=== PATIENT | female | born 1935 | race Caucasian/White ===

== ENCOUNTER 2017-04-24 17:08 | Inpatient (IN) | payer MEDICARE ==
[~2017-04-24] VITALS: Ht 167.6 cm; Wt 82.8 kg
[2017-04-24 17:55] LABS: BASO # 0.1 x10^3/uL (0.0-0.2); BASO % 1 % (0-3); EOS # 0.3 x10^3/uL (0.0-0.7); EOS % 5 % (0-3); HEMATOCRIT 43.7 % (36.0-47.0); HEMOGLOBIN 14.2 g/dL (12.0-15.5); LYMPH # 1.8 x10^3/uL (1.0-4.8); LYMPH % 28 % (24-48); MEAN CORPUSCULAR HEMOGLOBIN 29 pg (25-35); MEAN CORPUSCULAR HGB CONC 33 g/dL (31-37); MEAN CORPUSCULAR VOLUME 90 fL (79-100); MONO # 0.8 x10^3/uL (0.0-1.1); MONO % 13 % (0-9); NEUT # 3.4 x10^3uL (1.8-7.7); NEUT % 53 % (31-73); PLATELET COUNT 241 x10^3/uL (140-400); RED BLOOD COUNT 4.87 x10^6/uL (3.50-5.40); RED CELL DISTRIBUTION WIDTH 14.2 % (11.5-14.5); WHITE BLOOD COUNT 6.4 x10^3/uL (4.0-11.0)
--- NOTE | 2017-04-24 18:04 | ED.ADGEN ---
Past History Past Medical History: Dementia, Diverticulitis, GERD Past Surgical History: No Surgical History Alcohol Use: None Drug Use: None Adult General Chief Complaint Chief Complaint Encounter for medical screening exam HPI HPI Patient is a 81-year-old female with history of advanced dementia prevents with aggressive behavior to staff members and request for medical clearance for psychiatric admission. Patient denies any acute symptoms or complaints. No other acute symptoms or complaints. Review of Systems Review of Systems ROS as per HPI. Allergies Allergies Allergies Coded Allergies Type Severity Reaction Last Updated Verified No Known Drug Allergies 04/24/17 No Physical Exam Physical Exam Constitutional: Well developed, well nourished, no acute distress, non-toxic appearance. HENT: Normocephalic, atraumatic, bilateral external ears normal, oropharynx moist, no oral exudates, nose normal. Eyes: PERRLA, EOMI, conjunctiva normal, no discharge. Neck: Normal range of motion, no tenderness, supple, no stridor. Cardiovascular:Heart rate regular rhythm, no murmur. Lungs & Thorax: Bilateral breath sounds clear to auscultation. Abdomen: Bowel sounds normal, soft, no tenderness, no masses, no pulsatile masses. Skin: Warm, dry. Back: No tenderness, no CVA tenderness. Extremities: No tenderness, no cyanosis, no clubbing, ROM intact, no edema. Neurologic: Alert and oriented X O2, normal motor function, normal sensory function, no focal deficits noted. Psychologic: Affect normal, judgement normal, mood normal. Current Patient Data Vital Signs Vital Signs Date Time Temp Pulse Resp B/P (MAP) Pulse Ox O2 Delivery O2 Flow Rate FiO2 04/24/17 17:44 97.5 60 20 Lab Results Laboratory Tests Test 04/24/17 17:36 White Blood Count 6.4 x10^3/uL (4.0-11.0) Red Blood Count 4.87 x10^6/uL (3.50-5.40) Hemoglobin 14.2 g/dL (12.0-15.5) Hematocrit 43.7 % (36.0-47.0) Mean Corpuscular Volume 90 fL (79-100) Mean Corpuscular Hemoglobin 29 pg (25-35) Mean Corpuscular Hemoglobin Concent 33 g/dL (31-37) Red Cell Distribution Width 14.2 % (11.5-14.5) Platelet Count 241 x10^3/uL (140-400) Neutrophils (%) (Auto) 53 % (31-73) Lymphocytes (%) (Auto) 28 % (24-48) Monocytes (%) (Auto) 13 % (0-9) H Eosinophils (%) (Auto) 5 % (0-3) H Basophils (%) (Auto) 1 % (0-3) Neutrophils # (Auto) 3.4 x10^3uL (1.8-7.7) Lymphocytes # (Auto) 1.8 x10^3/uL (1.0-4.8) Monocytes # (Auto) 0.8 x10^3/uL (0.0-1.1) Eosinophils # (Auto) 0.3 x10^3/uL (0.0-0.7) Basophils # (Auto) 0.1 x10^3/uL (0.0-0.2) EKG EKG [] Radiology/Procedures Radiology/Procedures [] Course & Med Decision Making Course & Med Decision Making Pertinent Labs and Imaging studies reviewed. (See chart for details) [Patient's medically stable. Care endorsed, oncoming ERP for review of labs with anticipated admission to [facility] behavioral [facility].] Final Impression Final Impression [1. Encounter for medical screening exam] Problems: Dragon Disclaimer Dragon Disclaimer This electronic medical record was generated, in whole or in part, using a voice recognition dictation system. CASEY CURRIE DO Apr 24, 2017 18:04
[2017-04-24 18:14] LABS: BILIRUBIN,URINE NEG (NEG); CLARITY,URINE HAZY; COLOR,URINE YELLOW; GLUCOSE,URINE NEG (NEG)
[2017-04-24 18:15] LABS: ALBUMIN 3.7 g/dL (3.4-5.0); CALCIUM 8.9 mg/dL (8.5-10.1); CREATININE 1.1 mg/dL (0.6-1.0); GFR 47.7; POTASSIUM 3.8 mmol/L (3.5-5.1); TOTAL BILIRUBIN 0.4 mg/dL (0.2-1.0); TOTAL PROTEIN 7.5 g/dL (6.4-8.2)
[2017-04-24 18:15] LABS: NITRITE,URINE NEG (NEG); UROBILINOGEN,URINE 0.2 mg/dL (0.2 mg/dL)
[2017-04-24 18:16] LABS: BACTERIA,URINE FEW /HPF (0-FEW); SQUAMOUS EPITHELIAL CELL,UR MOD /LPF
--- NOTE | 2017-04-24 18:23 | EKG ---
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
[2017-04-24] MEDS ORDERED: MAGNESIUM HYDROXIDE 2,400 MG/30 ML ORAL.SUSP. PO PRN (19:30)
[2017-04-24] MEDS ORDERED: METHYL SALICYLATE/MENTHOL TOPICAL OINTMENT 29GM TUBE. TP PRN (19:30)
[2017-04-24] MEDS ORDERED: ACETAMINOPHEN 325 MG TABLET PO PRN (19:30)
[2017-04-24] MEDS ORDERED: MAG HYDROX/AL HYDROX/SIMETH 30 ML ORAL.SUSP PO PRN (19:30)
[2017-04-24] MEDS ORDERED: ASPI-612 PO (20:58)
[2017-04-24] MEDS ORDERED: MEMA28CA PO (20:58)
[2017-04-24] MEDS ORDERED: DONE10TA7 PO (20:58)
[2017-04-24] MEDS ORDERED: MULT1TAB52 PO (20:58)
[2017-04-24] MEDS ORDERED: RANI150T2 PO (20:58)
[2017-04-24] MEDS ORDERED: CALC1TAB64 PO (20:58)
[2017-04-24] MEDS ORDERED: QUET25TA5 PO ×2 (20:58)
[2017-04-24] MEDS ORDERED: TRAZ50TA15 PO ×2 (20:58→21:26)
[2017-04-24] MEDS ORDERED: CITA10TA8 PO (20:58)
[2017-04-24] MEDS ORDERED: LORA10TA68 PO (20:58)
[2017-04-24] MEDS ORDERED: QUEtiapine 25 MG TABLET. PO PRN (21:00)
[2017-04-24] MEDS: DONEPEZIL HCL 10 MG TABLET PO SCH (21:20)
[2017-04-24] MEDS: QUEtiapine 25 MG TABLET. PO SCH (21:20)
[2017-04-24] MEDS: traZODone 50 MG TABLET. PO SCH (21:20)
[2017-04-24] MEDS: FAMOTIDINE 20 MG TABLET PO SCH (22:00)
--- NOTE | 2017-04-24 23:33 | PDOC ---
Exam Oneil Demential Exam: Oneil Note: Please also refer to the separate dictated note~for this date of service dictated separately.~Patient seen individually. Discussed the patient with Nursing staff reviewed the chart.~Reviewed interim history and current functioning. Reviewed vital signs,~Labs/ Radiology~and current medications noted below. Continue current treatment with the changes noted in the dictated addendum note Assessment: Vital Signs: Vital Signs Date Time Temp Pulse Resp B/P (MAP) Pulse Ox O2 Delivery O2 Flow Rate FiO2 04/24/17 18:28 98.5 115 20 155/62 (93) 100 Labs: Laboratory Tests Test 04/24/17 17:15 04/24/17 17:36 Urine Collection Type Unknown Urine Color Yellow Urine Clarity Hazy Urine pH 6.0 Urine Specific [place] 1.015 Urine Protein Neg (NEG-TRACE) Urine Glucose (UA) Neg mg/dL (NEG) Urine Ketones (Stick) Neg mg/dL (NEG) Urine Blood Trace (NEG) Urine Nitrite Neg (NEG) Urine Bilirubin Neg (NEG) Urine Urobilinogen Dipstick 0.2 mg/dL (0.2 mg/dL) Urine Leukocyte Esterase Neg (NEG) Urine RBC 1-2 /HPF (0-2) Urine WBC 5-10 /HPF (0-4) Urine Squamous Epithelial Cells Mod /LPF Urine Bacteria Few /HPF (0-FEW) White Blood Count 6.4 x10^3/uL (4.0-11.0) Red Blood Count 4.87 x10^6/uL (3.50-5.40) Hemoglobin 14.2 g/dL (12.0-15.5) Hematocrit 43.7 % (36.0-47.0) Mean Corpuscular Volume 90 fL (79-100) Mean Corpuscular Hemoglobin 29 pg (25-35) Mean Corpuscular Hemoglobin Concent 33 g/dL (31-37) Red Cell Distribution Width 14.2 % (11.5-14.5) Platelet Count 241 x10^3/uL (140-400) Neutrophils (%) (Auto) 53 % (31-73) Lymphocytes (%) (Auto) 28 % (24-48) Monocytes (%) (Auto) 13 % (0-9) H Eosinophils (%) (Auto) 5 % (0-3) H Basophils (%) (Auto) 1 % (0-3) Neutrophils # (Auto) 3.4 x10^3uL (1.8-7.7) Lymphocytes # (Auto) 1.8 x10^3/uL (1.0-4.8) Monocytes # (Auto) 0.8 x10^3/uL (0.0-1.1) Eosinophils # (Auto) 0.3 x10^3/uL (0.0-0.7) Basophils # (Auto) 0.1 x10^3/uL (0.0-0.2) Sodium Level 139 mmol/L (136-145) Potassium Level 3.8 mmol/L (3.5-5.1) Chloride Level 103 mmol/L (98-107) Carbon Dioxide Level 31 mmol/L (21-32) Anion Gap 5 (6-14) L Blood Urea Nitrogen 18 mg/dL (7-20) Creatinine 1.1 mg/dL (0.6-1.0) H Estimated GFR (Cockcroft-Gault) 47.7 BUN/Creatinine Ratio 16 (6-20) Glucose Level 79 mg/dL (70-99) Calcium Level 8.9 mg/dL (8.5-10.1) Magnesium Level 2.2 mg/dL (1.8-2.4) Total Bilirubin 0.4 mg/dL (0.2-1.0) Aspartate Amino Transferase (AST) 27 U/L (15-37) Alanine Aminotransferase (ALT) 28 U/L (14-59) Alkaline Phosphatase 105 U/L (46-116) Total Protein 7.5 g/dL (6.4-8.2) Albumin 3.7 g/dL (3.4-5.0) Albumin/Globulin Ratio 1.0 (1.0-1.7) Current Medications: Meds: Current Medications Acetaminophen (Tylenol) 650 mg PRN Q6HRS PRN PO PAIN / TEMP; Start 04/24/17 at 19:30 Multi-Ingredient Ointment (Analgesic [place]) 1 kalin PRN QID PRN TP MUSCLE PAIN; Start 04/24/17 at 19:30 Al Hydroxide/Mg Hydroxide (Mylanta Plus Xs) 15 ml PRN AFTMEALHC PRN PO DYSPEPSIA; Start 04/24/17 at 19:30 Magnesium Hydroxide (Milk Of Magnesia) 2,400 mg PRN QHS PRN PO CONSTIPATION; Start 04/24/17 at 19:30 Citalopram Hydrobromide (CeleXA) 10 mg DAILY PO ; Start 04/25/17 at 09:00 Donepezil HCl (Aricept) 10 mg QHS PO Last administered on 04/24/17 21:20; Start 04/24/17 at 21:30 Quetiapine Fumarate (SEROquel) 12.5 mg PRN Q6HRS PRN PO PSYCHOSIS; Start at 21:00 Quetiapine Fumarate (SEROquel) 25 mg TID PO Last administered on 04/24/17 21: 20; Start 04/24/17 at 21:30 Trazodone HCl (Desyrel) 25 mg QHS PO Last administered on 04/24/17 21:20; Start 04/24/17 at 21:30 Memantine (Namenda) 10 mg BID PO ; Start 04/25/17 at 09:00 Trazodone HCl (Desyrel) 25 mg QHS PO ; Start 04/25/17 at 21:00; Status UNV Aspirin (Aspirin Enteric Coated) 81 mg DAILY PO ; Start 04/25/17 at 09:00 Calcium/Vitamin D (Oscal D 500mg/ 200uts) 1 tab BIDACBL PO ; Start 04/25/17 at 07:30 Cetirizine HCl (ZyrTEC) 10 mg PRN DAILY PRN PO ALLERGIES; Start 04/25/17 at 09: 00 Multivitamins/ Calcium (Thera-M Plus) 1 tab BID PO ; Start 04/25/17 at 09:00 Famotidine (Pepcid) 20 mg BID PO ; Start 04/24/17 at 22:00 Active Scripts Active Reported Trazodone Hcl 50 Mg Tablet 25 Mg PO QHS Seroquel (Quetiapine Fumarate) 25 Mg Tablet 12.5 Mg PO PRN Q6HRS PRN Seroquel (Quetiapine Fumarate) 25 Mg Tablet 25 Mg PO TID Claritin (Loratadine) 10 Mg Tablet 10 Mg PO PRN DAILY PRN Celexa (Citalopram Hydrobromide) 10 Mg Tablet 10 Mg PO DAILY Donepezil Hcl 10 Mg Tablet 10 Mg PO QHS Calcium 600 + Vit D 400 Tablet (Calcium Carbonate/Vitamin D3) 1 Each Tablet 1 Tab PO BIDACBL Ranitidine Hcl 150 Mg Tablet 150 Mg PO BID Aspirin Ec (Aspirin) 81 Mg Tablet.dr 81 Mg PO DAILY Multivitamins (Multivitamin) 1 Each Tablet 1 Tab PO BID Namenda Xr (Memantine Hcl) 28 Mg Cap.spr.24 28 Mg PO DAILY COY CISNEROS MD Apr 24, 2017 23:33
[2017-04-25 06:09] VITALS: BP 168/64
[2017-04-25] MEDS: FAMOTIDINE 20 MG TABLET PO SCH ×2 (08:40→20:42)
[2017-04-25] MEDS: QUEtiapine 25 MG TABLET. PO SCH ×3 (08:40→20:42)
[2017-04-25] MEDS: CALCIUM CARB/VIT D3 500/200 TABLET PO SCH ×2 (08:44→11:30)
[2017-04-25] MEDS: MEMANTINE 10 MG TABLET. PO SCH ×2 (08:44→20:42)
[2017-04-25] MEDS: ASPIRIN ENTERIC COATED 81 MG TABLET.DR. PO SCH (08:44)
[2017-04-25] MEDS: CITALOPRAM 10 MG TABLET. PO SCH (08:44)
[2017-04-25] MEDS: MULTIVITAMIN with MINERAL TABLET. PO SCH ×2 (08:44→20:42)
[2017-04-25] MEDS ORDERED: CETIRIZINE HCL 10 MG TABLET PO PRN (09:00)
--- NOTE | 2017-04-25 10:47 | ACF ---
Admission Criteria Forms PSYCHIATRIC DISORDERS Clinical Indications for Inpatient Care (Place 'X' for any and all applicable criteria): Ongoing inpatient care may be needed for 1 or more of the following(1)(2)(3)(4)( 6)(7)(8): [ ]I. Danger to self or others not manageable at lower level of care. [ ]II. Grave disability (eg, inability to perform self care necessary at lower level of care) [ ]III. Agitation or inappropriate behavior interfering with care for primary condition (eg, attempting to discontinue lines or drains prematurely, unable to cooperate with respiratory care) [X]IV. Severe disability or disorder indicated by ALL of the following: [X]a) Severe behavioral health disorder-related symptoms or condition indicated by 1 or more of the following: [ ]i) Severe problem with cognition, memory, judgment, or impulse control [X]ii) Severe clinical manifestations (eg, hallucinations, delusions, other acute psychotic symptoms, radha, extreme agitation or anxiety) [X]b) Patient management at lower level of care is not feasible until acute intervention or modification is initiated. Extended stay beyond goal length of stay for the primary condition may be needed untilALLof the following are present(1)(2)(3)(4)(722)(23): [ ]a) Danger to self or others is absent or manageable at lower level of care [ ]b) Behavior crisis management, including physical or chemical restraints, is required and is not available at a lower level of care. [ ]c) Behavioral symptoms (e.g., agitation, somnolence, inappropriate behavior) are present, and are not manageable at a lower level of care. [ ]d) Patient cannot understand follow-up treatment and crisis plan. [ ]e) Provider and supports are sufficiently available at lower level of care. [ ]f) Patient can participate (e.g., verify absence of plan for harm) and is in needed of monitoring. The original [facility] content created by [facility] [employer] has been revised. The portions of the content which have been revised are identified through the use of italic text, and [employer] has neither reviewed nor approved the modified material. All other unmodified content is copyright [facility] [employer]. Please see references footnoted in the original [facility] edition 2015 Admission Criteria Met?: Yes ERIC RONQUILLO Apr 25, 2017 10:47
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
[2017-04-25 16:06] VITALS: BP 146/85
[2017-04-25 19:07] LABS: T3 TOTAL 84 ng/dL (71-180); THYROXINE 5.4 ug/dL (4.5-12.0)
--- NOTE | 2017-04-25 19:52 | PDOC ---
Exam Oneil Demential Exam: Oneil Note: Please also refer to the separate dictated note~for this date of service dictated separately.~Patient seen individually. Discussed the patient with Nursing staff reviewed the chart.~Reviewed interim history and current functioning. Reviewed vital signs,~Labs/ Radiology~and current medications noted below. Continue current treatment with the changes noted in the dictated addendum note Assessment: Vital Signs: Vital Signs Date Time Temp Pulse Resp B/P (MAP) Pulse Ox O2 Delivery O2 Flow Rate FiO2 04/25/17 16:06 97.2 93 22 146/85 (105) 96 04/25/17 06:09 Room Air I&O Intake and Output 04/25/17 07:00 Intake Total 200 ml Balance 200 ml Intake Oral 200 ml Current Medications: Meds: Current Medications Acetaminophen (Tylenol) 650 mg PRN Q6HRS PRN PO PAIN / TEMP; Start 04/24/17 at 19:30 Multi-Ingredient Ointment (Analgesic [place]) 1 kalin PRN QID PRN TP MUSCLE PAIN; Start 04/24/17 at 19:30 Al Hydroxide/Mg Hydroxide (Mylanta Plus Xs) 15 ml PRN AFTMEALHC PRN PO DYSPEPSIA; Start 04/24/17 at 19:30 Magnesium Hydroxide (Milk Of Magnesia) 2,400 mg PRN QHS PRN PO CONSTIPATION; Start 04/24/17 at 19:30 Citalopram Hydrobromide (CeleXA) 10 mg DAILY PO Last administered on 04/25/17 08:44; Start 04/25/17 at 09:00 Donepezil HCl (Aricept) 10 mg QHS PO Last administered on 04/24/17 21:20; Start 04/24/17 at 21:30 Quetiapine Fumarate (SEROquel) 12.5 mg PRN Q6HRS PRN PO PSYCHOSIS; Start at 21:00 Quetiapine Fumarate (SEROquel) 25 mg TID PO Last administered on 04/25/17 14: 43; Start 04/24/17 at 21:30 Trazodone HCl (Desyrel) 25 mg QHS PO Last administered on 04/24/17 21:20; Start 04/24/17 at 21:30 Memantine (Namenda) 10 mg BID PO Last administered on 04/25/17 08:44; Start at 09:00 Trazodone HCl (Desyrel) 25 mg QHS PO ; Start 04/25/17 at 21:00; Status UNV Aspirin (Aspirin Enteric Coated) 81 mg DAILY PO Last administered on 04/25/17 08:44; Start 04/25/17 at 09:00 Calcium/Vitamin D (Oscal D 500mg/ 200uts) 1 tab BIDACBL PO Last administered on 04/25/17 11:30; Start 04/25/17 at 07:30 Cetirizine HCl (ZyrTEC) 10 mg PRN DAILY PRN PO ALLERGIES; Start 04/25/17 at 09: 00 Multivitamins/ Calcium (Thera-M Plus) 1 tab BID PO Last administered on 08:44; Start 04/25/17 at 09:00 Famotidine (Pepcid) 20 mg BID PO Last administered on 04/25/17 08:40; Start at 22:00 Active Scripts Active Reported Trazodone Hcl 50 Mg Tablet 25 Mg PO QHS Seroquel (Quetiapine Fumarate) 25 Mg Tablet 12.5 Mg PO PRN Q6HRS PRN Seroquel (Quetiapine Fumarate) 25 Mg Tablet 25 Mg PO TID Claritin (Loratadine) 10 Mg Tablet 10 Mg PO PRN DAILY PRN Celexa (Citalopram Hydrobromide) 10 Mg Tablet 10 Mg PO DAILY Donepezil Hcl 10 Mg Tablet 10 Mg PO QHS Calcium 600 + Vit D 400 Tablet (Calcium Carbonate/Vitamin D3) 1 Each Tablet 1 Tab PO BIDACBL Ranitidine Hcl 150 Mg Tablet 150 Mg PO BID Aspirin Ec (Aspirin) 81 Mg Tablet.dr 81 Mg PO DAILY Multivitamins (Multivitamin) 1 Each Tablet 1 Tab PO BID Namenda Xr (Memantine Hcl) 28 Mg Cap.spr.24 28 Mg PO DAILY COY CISNEROS MD Apr 25, 2017 19:52
[2017-04-25] MEDS: traZODone 50 MG TABLET. PO SCH (20:42)
[2017-04-25] MEDS: DONEPEZIL HCL 10 MG TABLET PO SCH (20:42)
[2017-04-25] MEDS ORDERED: traZODone 50 MG TABLET. PO SCH (21:00)
[2017-04-26] MEDS: MULTIVITAMIN with MINERAL TABLET. PO SCH ×2 (08:28→19:55)
[2017-04-26] MEDS: MEMANTINE 10 MG TABLET. PO SCH ×2 (08:28→19:56)
[2017-04-26] MEDS: FAMOTIDINE 20 MG TABLET PO SCH ×2 (08:28→19:56)
[2017-04-26] MEDS: ASPIRIN ENTERIC COATED 81 MG TABLET.DR. PO SCH (08:29)
[2017-04-26] MEDS: QUEtiapine 25 MG TABLET. PO SCH ×3 (08:29→19:55)
[2017-04-26] MEDS: CITALOPRAM 10 MG TABLET. PO SCH (08:29)
[2017-04-26] MEDS: CALCIUM CARB/VIT D3 500/200 TABLET PO SCH ×2 (08:31→11:30)
[2017-04-26] MEDS: busPIRone 5 MG TABLET. PO SCH ×2 (08:31→14:07)
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
[2017-04-26 16:11] VITALS: BP 126/78
[2017-04-26] MEDS: DONEPEZIL HCL 10 MG TABLET PO SCH (19:55)
[2017-04-26] MEDS: traZODone 50 MG TABLET. PO SCH (19:56)
--- NOTE | 2017-04-26 20:26 | PDOC ---
Exam Oneil Demential Exam: Oneil Note: Please also refer to the separate dictated note~for this date of service dictated separately.~Patient seen individually. Discussed the patient with Nursing staff reviewed the chart.~Reviewed interim history and current functioning. Reviewed vital signs,~Labs/ Radiology~and current medications noted below. Continue current treatment with the changes noted in the dictated addendum note Assessment: Vital Signs: Vital Signs Date Time Temp Pulse Resp B/P (MAP) Pulse Ox O2 Delivery O2 Flow Rate FiO2 04/26/17 16:11 97.6 66 16 126/78 (94) 98 04/25/17 06:09 Room Air I&O Intake and Output 04/26/17 07:00 Intake Total 1440 ml Balance 1440 ml Intake Oral 1440 ml Current Medications: Meds: Current Medications Acetaminophen (Tylenol) 650 mg PRN Q6HRS PRN PO PAIN / TEMP; Start 04/24/17 at 19:30 Multi-Ingredient Ointment (Analgesic [place]) 1 kalin PRN QID PRN TP MUSCLE PAIN; Start 04/24/17 at 19:30 Al Hydroxide/Mg Hydroxide (Mylanta Plus Xs) 15 ml PRN AFTMEALHC PRN PO DYSPEPSIA; Start 04/24/17 at 19:30 Magnesium Hydroxide (Milk Of Magnesia) 2,400 mg PRN QHS PRN PO CONSTIPATION; Start 04/24/17 at 19:30 Citalopram Hydrobromide (CeleXA) 10 mg DAILY PO Last administered on 04/26/17 08:29; Start 04/25/17 at 09:00 Donepezil HCl (Aricept) 10 mg QHS PO Last administered on 04/26/17 19:55; Start 04/24/17 at 21:30 Quetiapine Fumarate (SEROquel) 12.5 mg PRN Q6HRS PRN PO PSYCHOSIS; Start at 21:00 Quetiapine Fumarate (SEROquel) 25 mg TID PO Last administered on 04/26/17 19: 55; Start 04/24/17 at 21:30 Trazodone HCl (Desyrel) 25 mg QHS PO Last administered on 04/26/17 19:56; Start 04/24/17 at 21:30 Memantine (Namenda) 10 mg BID PO Last administered on 04/26/17 19:56; Start at 09:00 Trazodone HCl (Desyrel) 25 mg QHS PO ; Start 04/25/17 at 21:00; Status UNV Aspirin (Aspirin Enteric Coated) 81 mg DAILY PO Last administered on 04/26/17 08:29; Start 04/25/17 at 09:00 Calcium/Vitamin D (Oscal D 500mg/ 200uts) 1 tab BIDACBL PO Last administered on 04/26/17 11:30; Start 04/25/17 at 07:30 Cetirizine HCl (ZyrTEC) 10 mg PRN DAILY PRN PO ALLERGIES; Start 04/25/17 at 09: 00 Multivitamins/ Calcium (Thera-M Plus) 1 tab BID PO Last administered on 19:55; Start 04/25/17 at 09:00 Famotidine (Pepcid) 20 mg BID PO Last administered on 04/26/17 19:56; Start at 22:00 Buspirone HCl (Buspar) 5 mg BID92 PO Last administered on 04/26/17 14:07; Start 04/26/17 at 09:00 Olanzapine (ZyPREXA ZYDIS) 2.5 mg PRN Q2HR PRN PO PSYCHOSIS Last administered on 04/26/17 15:46; Start 04/25/17 at 20:45 Active Scripts Active Reported Trazodone Hcl 50 Mg Tablet 25 Mg PO QHS Seroquel (Quetiapine Fumarate) 25 Mg Tablet 12.5 Mg PO PRN Q6HRS PRN Seroquel (Quetiapine Fumarate) 25 Mg Tablet 25 Mg PO TID Claritin (Loratadine) 10 Mg Tablet 10 Mg PO PRN DAILY PRN Celexa (Citalopram Hydrobromide) 10 Mg Tablet 10 Mg PO DAILY Donepezil Hcl 10 Mg Tablet 10 Mg PO QHS Calcium 600 + Vit D 400 Tablet (Calcium Carbonate/Vitamin D3) 1 Each Tablet 1 Tab PO BIDACBL Ranitidine Hcl 150 Mg Tablet 150 Mg PO BID Aspirin Ec (Aspirin) 81 Mg Tablet.dr 81 Mg PO DAILY Multivitamins (Multivitamin) 1 Each Tablet 1 Tab PO BID Namenda Xr (Memantine Hcl) 28 Mg Cap.spr.24 28 Mg PO DAILY COY CISNEROS MD Apr 26, 2017 20:26
[2017-04-26] MEDS ORDERED: TRAZ50TA15 PO (21:53)
[2017-04-26] MEDS: traZODone 50 MG TABLET. PO PRN (22:01)
--- NOTE | 2017-04-27 01:29 | PN ---
DATE: 04/26/2017 This note covers elements not covered in my initial note. SUBJECTIVE: The patient remains anxious, restless, confused. She eloped from the unit with one of the staff members unaware of what was happening, but then was brought back since she did not even get off the floor. She received Zyprexa at 02:00 p.m. REVIEW OF SYSTEMS: No CV, , pulmonary, eye system symptoms on review. Reliability poor. MENTAL STATUS EXAM: Oriented to herself. Insight, judgment, recent and remote memory, attention, concentration, fund of knowledge poor, consistent with her diagnosis mentioned in my initial note. PLAN: Increase BuSpar from 5 mg twice a day to 5 mg 3 times a day starting on 04/27/2017. Maintain the rest of the psychotropics mentioned in my initial note. MAN Melvin CISNEROS MD DR: CEM/nicolle JOB#: [id number] / [id number]
[2017-04-27 05:58] VITALS: BP 152/75
[2017-04-27] MEDS: ASPIRIN ENTERIC COATED 81 MG TABLET.DR. PO SCH (07:46)
[2017-04-27] MEDS: FAMOTIDINE 20 MG TABLET PO SCH ×2 (07:46→20:12)
[2017-04-27] MEDS: MULTIVITAMIN with MINERAL TABLET. PO SCH ×2 (07:46→20:12)
[2017-04-27] MEDS: CITALOPRAM 10 MG TABLET. PO SCH (07:46)
[2017-04-27] MEDS: MEMANTINE 10 MG TABLET. PO SCH (07:46)
[2017-04-27] MEDS: CALCIUM CARB/VIT D3 500/200 TABLET PO SCH ×2 (07:46→14:15)
[2017-04-27] MEDS: busPIRone 5 MG TABLET. PO SCH ×2 (07:46→14:15)
[2017-04-27] MEDS: QUEtiapine 25 MG TABLET. PO SCH ×3 (07:46→20:23)
[2017-04-27] MEDS ORDERED: CHOLECALCIFEROL (VITAMIN D3) 1,000 UNIT TABLET ONE (14:14)
[2017-04-27] MEDS: CHOLECALCIFEROL (VITAMIN D3) 1,000 UNIT TABLET PO SCH (14:15)
[2017-04-27 16:03] VITALS: BP 115/68
--- NOTE | 2017-04-27 20:07 | PDOC ---
Exam Oneil Demential Exam: Oneil Note: Please also refer to the separate dictated note~for this date of service dictated separately.~Patient seen individually. Discussed the patient with Nursing staff reviewed the chart.~Reviewed interim history and current functioning. Reviewed vital signs,~Labs/ Radiology~and current medications noted below. Continue current treatment with the changes noted in the dictated addendum note Assessment: Vital Signs: Vital Signs Date Time Temp Pulse Resp B/P (MAP) Pulse Ox O2 Delivery O2 Flow Rate FiO2 04/27/17 16:03 98.3 66 18 115/68 (84) 96 Room Air I&O Intake and Output 04/27/17 07:00 Intake Total 1040 ml Balance 1040 ml Intake Oral 1040 ml Current Medications: Meds: Current Medications Acetaminophen (Tylenol) 650 mg PRN Q6HRS PRN PO PAIN / TEMP; Start 04/24/17 at 19:30 Multi-Ingredient Ointment (Analgesic [place]) 1 kalin PRN QID PRN TP MUSCLE PAIN; Start 04/24/17 at 19:30 Al Hydroxide/Mg Hydroxide (Mylanta Plus Xs) 15 ml PRN AFTMEALHC PRN PO DYSPEPSIA; Start 04/24/17 at 19:30 Magnesium Hydroxide (Milk Of Magnesia) 2,400 mg PRN QHS PRN PO CONSTIPATION; Start 04/24/17 at 19:30 Citalopram Hydrobromide (CeleXA) 10 mg DAILY PO Last administered on 04/27/17 07:46; Start 04/25/17 at 09:00 Donepezil HCl (Aricept) 10 mg QHS PO Last administered on 04/26/17 19:55; Start 04/24/17 at 21:30; Stop 04/27/17 at 10:47; Status DC Quetiapine Fumarate (SEROquel) 12.5 mg PRN Q6HRS PRN PO PSYCHOSIS; Start at 21:00 Quetiapine Fumarate (SEROquel) 25 mg TID PO Last administered on 04/27/17 14: 15; Start 04/24/17 at 21:30 Trazodone HCl (Desyrel) 25 mg QHS PO Last administered on 04/26/17 19:56; Start 04/24/17 at 21:30 Memantine (Namenda) 10 mg BID PO Last administered on 04/27/17 07:46; Start at 09:00; Stop 04/27/17 at 10:47; Status DC Trazodone HCl (Desyrel) 25 mg QHS PO ; Start 04/25/17 at 21:00; Status UNV Aspirin (Aspirin Enteric Coated) 81 mg DAILY PO Last administered on 04/27/17 07:46; Start 04/25/17 at 09:00 Calcium/Vitamin D (Oscal D 500mg/ 200uts) 1 tab BIDACBL PO Last administered on 04/27/17 14:15; Start 04/25/17 at 07:30 Cetirizine HCl (ZyrTEC) 10 mg PRN DAILY PRN PO ALLERGIES; Start 04/25/17 at 09: 00 Multivitamins/ Calcium (Thera-M Plus) 1 tab BID PO Last administered on 07:46; Start 04/25/17 at 09:00 Famotidine (Pepcid) 20 mg BID PO Last administered on 04/27/17 07:46; Start at 22:00 Buspirone HCl (Buspar) 5 mg [id number] PO Last administered on 04/27/17 14:15; Start 04/26/17 at 09:00 Olanzapine (ZyPREXA ZYDIS) 2.5 mg PRN Q2HR PRN PO PSYCHOSIS Last administered on 04/27/17 17:50; Start 04/25/17 at 20:45 Trazodone HCl (Desyrel) 25 mg PRN QHS PRN PO INSOMNIA Last administered on 04/26 22:01; Start 04/26/17 at 22:00 Donepezil HCl (Aricept) 5 mg QHS PO ; Start 04/27/17 at 21:00 Memantine (Namenda) 10 mg DAILY PO ; Start 04/28/17 at 09:00; Stop 04/29/17 at 00:00 Atorvastatin Calcium (Lipitor) 10 mg QHS PO ; Start 04/27/17 at 21:00 Vitamin D (Vitamin D3) 1,000 unit DAILYBFRSUP PO Last administered on 14:15; Start 04/27/17 at 17:00 Ferrous Sulfate (Feosol) 325 mg DAILYWBKFT PO ; Start 04/28/17 at 08:00 Vitamin D (Vitamin D3) 1,000 unit STK-MED ONCE .ROUTE ; Start 04/27/17 at 14:14 ; Stop 04/27/17 at 14:15; Status DC Active Scripts Active Reported Trazodone Hcl 50 Mg Tablet 25 Mg PO PRN QHS PRN Trazodone Hcl 50 Mg Tablet 25 Mg PO QHS Seroquel (Quetiapine Fumarate) 25 Mg Tablet 12.5 Mg PO PRN Q6HRS PRN Seroquel (Quetiapine Fumarate) 25 Mg Tablet 25 Mg PO TID Claritin (Loratadine) 10 Mg Tablet 10 Mg PO PRN DAILY PRN Celexa (Citalopram Hydrobromide) 10 Mg Tablet 10 Mg PO DAILY Donepezil Hcl 10 Mg Tablet 10 Mg PO QHS Calcium 600 + Vit D 400 Tablet (Calcium Carbonate/Vitamin D3) 1 Each Tablet 1 Tab PO BIDACBL Ranitidine Hcl 150 Mg Tablet 150 Mg PO BID Aspirin Ec (Aspirin) 81 Mg Tablet.dr 81 Mg PO DAILY Multivitamins (Multivitamin) 1 Each Tablet 1 Tab PO BID Namenda Xr (Memantine Hcl) 28 Mg Cap.spr.24 28 Mg PO DAILY COY CISNEROS MD Apr 27, 2017 20:07
[2017-04-27] MEDS: traZODone 50 MG TABLET. PO SCH (20:11)
[2017-04-27] MEDS: ATORVASTATIN CALCIUM 10 MG TABLET. PO SCH (20:19)
[2017-04-27] MEDS: DONEPEZIL HCL 5 MG TABLET. PO SCH (20:23)
[2017-04-28 06:22] VITALS: BP_SYST 121; BP_SYST 146; BP_DIAS 64; BP_DIAS 78
[2017-04-28] MEDS: MULTIVITAMIN with MINERAL TABLET. PO SCH ×2 (07:44→21:35)
[2017-04-28] MEDS: CITALOPRAM 10 MG TABLET. PO SCH (07:44)
[2017-04-28] MEDS: ASPIRIN ENTERIC COATED 81 MG TABLET.DR. PO SCH (07:44)
[2017-04-28] MEDS: busPIRone 5 MG TABLET. PO SCH ×3 (07:44→21:42)
[2017-04-28] MEDS: CALCIUM CARB/VIT D3 500/200 TABLET PO SCH ×2 (07:44→10:44)
[2017-04-28] MEDS: FAMOTIDINE 20 MG TABLET PO SCH ×2 (07:44→21:36)
[2017-04-28] MEDS: QUEtiapine 25 MG TABLET. PO SCH ×3 (07:44→13:26)
[2017-04-28] MEDS: FERROUS SULFATE 325 MG TABLET PO SCH (08:00)
[2017-04-28] MEDS ORDERED: MEMANTINE 10 MG TABLET. PO SCH (09:00)
--- NOTE | 2017-04-28 09:01 | PN ---
DATE: 04/27/2017 SUBJECTIVE: This is a late entry 04/27/2017 and covers elements not covered in my initial note. The patient was staffed at a treatment team meeting with the entire team morning of 04/27/2017 together with her Rosas attending and Ashlee her daughter. Reviewed history and gathered information at length from the family sleeping about 6 hours. Appetite 100%. Resistive to care at times, confused, and likes music. Exit seeking at times. At other times compliant with medications. When I met with her the evening of 04/27/2017, she has used to p.r.n. during the day. Mood has been labile, exit seeking, and anxious. She certainly remains confused and ambulates ____. REVIEW OF SYSTEMS: No CV, , pulmonary, eye, or ENT system symptoms on review. Reliability poor. MENTAL STATUS EXAM: Oriented to herself. Insight, judgment, recent and remote memory, attention, concentration, and fund of knowledge poor consistent with her diagnosis mentioned in my initial note. DIAGNOSES: Major neurocognitive disorder, Alzheimer, vascular with depression, delusion, behavioral disturbance, anxiety disorder, unspecified; and impulse control disorder, unspecified. PLAN: Increase BuSpar from 5 mg b.i.d. to 5 mg t.i.d. Stop the Aricept and Namenda after taper as discussed with the family. It may have a little benefit or efficacy at this stage of her dementia. Continue Celexa 10 mg a day, Seroquel 25 t.i.d., trazodone 25 at bedtime, may repeat x 1, and Zyprexa p.r.n. COY CISNEROS MD DR: CEM/nicolle JOB#: [id number] / [id number]
[2017-04-28] MEDS: CHOLECALCIFEROL (VITAMIN D3) 1,000 UNIT TABLET PO SCH (16:21)
[2017-04-28 16:32] VITALS: BP 134/89
--- NOTE | 2017-04-28 20:58 | PDOC ---
Exam Oneil Demential Exam: Oneil Note: Please also refer to the separate dictated note~for this date of service dictated separately.~Patient seen individually. Discussed the patient with Nursing staff reviewed the chart.~Reviewed interim history and current functioning. Reviewed vital signs,~Labs/ Radiology~and current medications noted below. Continue current treatment with the changes noted in the dictated addendum note Assessment: Vital Signs: Vital Signs Date Time Temp Pulse Resp B/P (MAP) Pulse Ox O2 Delivery O2 Flow Rate FiO2 04/28/17 16:32 98.4 94 22 134/89 (104) 96 04/27/17 16:03 Room Air I&O Intake and Output 04/28/17 06:59 Intake Total 720 ml Balance 720 ml Intake Oral 720 ml Current Medications: Meds: Current Medications Acetaminophen (Tylenol) 650 mg PRN Q6HRS PRN PO PAIN / TEMP; Start 04/24/17 at 19:30 Multi-Ingredient Ointment (Analgesic [place]) 1 kalin PRN QID PRN TP MUSCLE PAIN; Start 04/24/17 at 19:30 Al Hydroxide/Mg Hydroxide (Mylanta Plus Xs) 15 ml PRN AFTMEALHC PRN PO DYSPEPSIA; Start 04/24/17 at 19:30 Magnesium Hydroxide (Milk Of Magnesia) 2,400 mg PRN QHS PRN PO CONSTIPATION; Start 04/24/17 at 19:30 Citalopram Hydrobromide (CeleXA) 10 mg DAILY PO Last administered on 04/28/17 07:44; Start 04/25/17 at 09:00 Donepezil HCl (Aricept) 10 mg QHS PO Last administered on 04/26/17 19:55; Start 04/24/17 at 21:30; Stop 04/27/17 at 10:47; Status DC Quetiapine Fumarate (SEROquel) 12.5 mg PRN Q6HRS PRN PO PSYCHOSIS; Start at 21:00 Quetiapine Fumarate (SEROquel) 25 mg TID PO Last administered on 04/28/17 13: 26; Start 04/24/17 at 21:30; Stop 04/28/17 at 18:19; Status DC Trazodone HCl (Desyrel) 25 mg QHS PO Last administered on 04/27/17 20:11; Start 04/24/17 at 21:30 Memantine (Namenda) 10 mg BID PO Last administered on 04/27/17 07:46; Start at 09:00; Stop 04/27/17 at 10:47; Status DC Trazodone HCl (Desyrel) 25 mg QHS PO ; Start 04/25/17 at 21:00; Status UNV Aspirin (Aspirin Enteric Coated) 81 mg DAILY PO Last administered on 04/28/17 07:44; Start 04/25/17 at 09:00 Calcium/Vitamin D (Oscal D 500mg/ 200uts) 1 tab BIDACBL PO Last administered on 04/28/17 10:44; Start 04/25/17 at 07:30 Cetirizine HCl (ZyrTEC) 10 mg PRN DAILY PRN PO ALLERGIES; Start 04/25/17 at 09: 00 Multivitamins/ Calcium (Thera-M Plus) 1 tab BID PO Last administered on 07:44; Start 04/25/17 at 09:00 Famotidine (Pepcid) 20 mg BID PO Last administered on 04/28/17 07:44; Start at 22:00 Buspirone HCl (Buspar) 5 mg BID92 PO Last administered on 04/28/17 13:22; Start 04/26/17 at 09:00; Stop 04/28/17 at 18:19; Status DC Olanzapine (ZyPREXA ZYDIS) 2.5 mg PRN Q2HR PRN PO PSYCHOSIS Last administered on 04/28/17 18:27; Start 04/25/17 at 20:45 Trazodone HCl (Desyrel) 25 mg PRN QHS PRN PO INSOMNIA Last administered on 04/26 22:01; Start 04/26/17 at 22:00 Donepezil HCl (Aricept) 5 mg QHS PO Last administered on 04/27/17 20:23; Start 04/27/17 at 21:00 Memantine (Namenda) 10 mg DAILY PO Last administered on 04/28/17 07:44; Start 04/28/17 at 09:00; Stop 04/29/17 at 00:00 Atorvastatin Calcium (Lipitor) 10 mg QHS PO Last administered on 04/27/17 20: 19; Start 04/27/17 at 21:00 Vitamin D (Vitamin D3) 1,000 unit DAILYBFRSUP PO Last administered on 16:21; Start 04/27/17 at 17:00 Ferrous Sulfate (Feosol) 325 mg DAILYWBKFT PO Last administered on 04/28/17 08 :00; Start 04/28/17 at 08:00 Vitamin D (Vitamin D3) 1,000 unit STK-MED ONCE .ROUTE ; Start 04/27/17 at 14:14 ; Stop 04/27/17 at 14:15; Status DC Buspirone HCl (Buspar) 5 mg [id number] PO ; Start 04/28/17 at 21:00 Quetiapine Fumarate (SEROquel) 25 mg BID92 PO ; Start 04/29/17 at 09:00 Active Scripts Active Reported Trazodone Hcl 50 Mg Tablet 25 Mg PO PRN QHS PRN Trazodone Hcl 50 Mg Tablet 25 Mg PO QHS Seroquel (Quetiapine Fumarate) 25 Mg Tablet 12.5 Mg PO PRN Q6HRS PRN Seroquel (Quetiapine Fumarate) 25 Mg Tablet 25 Mg PO TID Claritin (Loratadine) 10 Mg Tablet 10 Mg PO PRN DAILY PRN Celexa (Citalopram Hydrobromide) 10 Mg Tablet 10 Mg PO DAILY Donepezil Hcl 10 Mg Tablet 10 Mg PO QHS Calcium 600 + Vit D 400 Tablet (Calcium Carbonate/Vitamin D3) 1 Each Tablet 1 Tab PO BIDACBL Ranitidine Hcl 150 Mg Tablet 150 Mg PO BID Aspirin Ec (Aspirin) 81 Mg Tablet.dr 81 Mg PO DAILY Multivitamins (Multivitamin) 1 Each Tablet 1 Tab PO BID Namenda Xr (Memantine Hcl) 28 Mg Cap.spr.24 28 Mg PO DAILY COY CISNEROS MD Apr 28, 2017 20:58
[2017-04-28] MEDS: ATORVASTATIN CALCIUM 10 MG TABLET. PO SCH (21:35)
[2017-04-28] MEDS: traZODone 50 MG TABLET. PO SCH (21:36)
[2017-04-28] MEDS: DONEPEZIL HCL 5 MG TABLET. PO SCH (21:42)
[2017-04-29 06:21] VITALS: BP 134/89
[2017-04-29] MEDS: ASPIRIN ENTERIC COATED 81 MG TABLET.DR. PO SCH (08:01)
[2017-04-29] MEDS: CITALOPRAM 10 MG TABLET. PO SCH (08:01)
[2017-04-29] MEDS: MULTIVITAMIN with MINERAL TABLET. PO SCH ×2 (08:01→19:23)
[2017-04-29] MEDS: FAMOTIDINE 20 MG TABLET PO SCH ×2 (08:01→19:23)
[2017-04-29] MEDS: CALCIUM CARB/VIT D3 500/200 TABLET PO SCH ×2 (08:01→12:17)
[2017-04-29] MEDS: FERROUS SULFATE 325 MG TABLET PO SCH (08:01)
[2017-04-29] MEDS: busPIRone 5 MG TABLET. PO SCH ×3 (08:01→19:23)
[2017-04-29] MEDS: QUEtiapine 25 MG TABLET. PO SCH ×2 (08:03→12:18)
--- NOTE | 2017-04-29 12:19 | PN ---
DATE: 04/28/2017 PSYCHIATRIC PROGRESS NOTE This is late entry for date of service 04/28/2017, cover elements not covered in my initial note. SUBJECTIVE: The patient slept 5 hours previous night, difficult to redirect. Feels people are trying to hurt her. Remains paranoid, suspicious. REVIEW OF SYSTEMS: No CV, , pulmonary, eye, ENT system symptoms on review. Reliability poor. MENTAL STATUS EXAM: Oriented to herself. Insight, judgment, recent and remote memory, attention, concentration, fund of knowledge poor, consistent with her diagnosis mentioned in my initial note. IMPRESSION: Major neurocognitive disorder, Alzheimer, vascular with depression, delusion. Rest diagnosis unchanged. PLAN: Reduce Seroquel from 25 mg t.i.d. to 25 mg b.i.d. since the family has left a message they like to minimize Seroquel and we had considered this anyway. Taper and stop the Namenda and Aricept. Maintain Celexa 10 mg a day and increase BuSpar from 5 mg b.i.d. to 5 mg to t.i.d. Continue trazodone for now. MAN Melvin CISNEROS MD DR: CEM/nicolle JOB#: [id number] / [id number]
[2017-04-29 16:45] VITALS: BP 144/90
[2017-04-29] MEDS: CHOLECALCIFEROL (VITAMIN D3) 1,000 UNIT TABLET PO SCH (17:18)
[2017-04-29] MEDS: traZODone 50 MG TABLET. PO SCH (19:23)
[2017-04-29] MEDS: DONEPEZIL HCL 5 MG TABLET. PO SCH (19:23)
[2017-04-29] MEDS: traZODone 50 MG TABLET. PO PRN (19:23)
[2017-04-29] MEDS: ATORVASTATIN CALCIUM 10 MG TABLET. PO SCH (19:24)
--- NOTE | 2017-04-29 22:46 | PDOC ---
Exam Oneil Demential Exam: Oneil Note: Please also refer to the separate dictated note~for this date of service dictated separately.~Patient seen individually. Discussed the patient with Nursing staff reviewed the chart.~Reviewed interim history and current functioning. Reviewed vital signs,~Labs/ Radiology~and current medications noted below. Continue current treatment with the changes noted in the dictated addendum note Assessment: Vital Signs: Vital Signs Date Time Temp Pulse Resp B/P (MAP) Pulse Ox O2 Delivery O2 Flow Rate FiO2 04/29/17 16:45 98.2 71 18 144/90 (108) 98 04/27/17 16:03 Room Air I&O Intake and Output 04/29/17 07:00 Intake Total 480 ml Balance 480 ml Intake Oral 480 ml Current Medications: Meds: Current Medications Acetaminophen (Tylenol) 650 mg PRN Q6HRS PRN PO PAIN / TEMP; Start 04/24/17 at 19:30 Multi-Ingredient Ointment (Analgesic [place]) 1 kalin PRN QID PRN TP MUSCLE PAIN; Start 04/24/17 at 19:30 Al Hydroxide/Mg Hydroxide (Mylanta Plus Xs) 15 ml PRN AFTMEALHC PRN PO DYSPEPSIA; Start 04/24/17 at 19:30 Magnesium Hydroxide (Milk Of Magnesia) 2,400 mg PRN QHS PRN PO CONSTIPATION; Start 04/24/17 at 19:30 Citalopram Hydrobromide (CeleXA) 10 mg DAILY PO Last administered on 04/29/17 08:01; Start 04/25/17 at 09:00 Donepezil HCl (Aricept) 10 mg QHS PO Last administered on 04/26/17 19:55; Start 04/24/17 at 21:30; Stop 04/27/17 at 10:47; Status DC Quetiapine Fumarate (SEROquel) 12.5 mg PRN Q6HRS PRN PO PSYCHOSIS; Start at 21:00 Quetiapine Fumarate (SEROquel) 25 mg TID PO Last administered on 04/28/17 13: 26; Start 04/24/17 at 21:30; Stop 04/28/17 at 18:19; Status DC Trazodone HCl (Desyrel) 25 mg QHS PO Last administered on 04/29/17 19:23; Start 04/24/17 at 21:30 Memantine (Namenda) 10 mg BID PO Last administered on 04/27/17 07:46; Start at 09:00; Stop 04/27/17 at 10:47; Status DC Trazodone HCl (Desyrel) 25 mg QHS PO ; Start 04/25/17 at 21:00; Status UNV Aspirin (Aspirin Enteric Coated) 81 mg DAILY PO Last administered on 04/29/17 08:01; Start 04/25/17 at 09:00 Calcium/Vitamin D (Oscal D 500mg/ 200uts) 1 tab BIDACBL PO Last administered on 04/29/17 12:17; Start 04/25/17 at 07:30 Cetirizine HCl (ZyrTEC) 10 mg PRN DAILY PRN PO ALLERGIES; Start 04/25/17 at 09: 00 Multivitamins/ Calcium (Thera-M Plus) 1 tab BID PO Last administered on 19:23; Start 04/25/17 at 09:00 Famotidine (Pepcid) 20 mg BID PO Last administered on 04/29/17 19:23; Start at 22:00 Buspirone HCl (Buspar) 5 mg BID92 PO Last administered on 04/28/17 13:22; Start 04/26/17 at 09:00; Stop 04/28/17 at 18:19; Status DC Olanzapine (ZyPREXA ZYDIS) 2.5 mg PRN Q2HR PRN PO PSYCHOSIS Last administered on 04/29/17 12:18; Start 04/25/17 at 20:45 Trazodone HCl (Desyrel) 25 mg PRN QHS PRN PO INSOMNIA Last administered on 04/29 19:23; Start 04/26/17 at 22:00 Donepezil HCl (Aricept) 5 mg QHS PO Last administered on 04/29/17 19:23; Start 04/27/17 at 21:00 Memantine (Namenda) 10 mg DAILY PO Last administered on 04/28/17 07:44; Start 04/28/17 at 09:00; Stop 04/29/17 at 00:00; Status DC Atorvastatin Calcium (Lipitor) 10 mg QHS PO Last administered on 04/29/17 19: 24; Start 04/27/17 at 21:00 Vitamin D (Vitamin D3) 1,000 unit DAILYBFRSUP PO Last administered on 17:18; Start 04/27/17 at 17:00 Ferrous Sulfate (Feosol) 325 mg DAILYWBKFT PO Last administered on 04/29/17 08 :01; Start 04/28/17 at 08:00 Vitamin D (Vitamin D3) 1,000 unit STK-MED ONCE .ROUTE ; Start 04/27/17 at 14:14 ; Stop 04/27/17 at 14:15; Status DC Buspirone HCl (Buspar) 5 mg [id number] PO Last administered on 04/29/17 19:23; Start 04/28/17 at 21:00 Quetiapine Fumarate (SEROquel) 25 mg BID92 PO Last administered on 04/29/17 12 :18; Start 04/29/17 at 09:00 Active Scripts Active Reported Trazodone Hcl 50 Mg Tablet 25 Mg PO PRN QHS PRN Trazodone Hcl 50 Mg Tablet 25 Mg PO QHS Seroquel (Quetiapine Fumarate) 25 Mg Tablet 12.5 Mg PO PRN Q6HRS PRN Seroquel (Quetiapine Fumarate) 25 Mg Tablet 25 Mg PO TID Claritin (Loratadine) 10 Mg Tablet 10 Mg PO PRN DAILY PRN Celexa (Citalopram Hydrobromide) 10 Mg Tablet 10 Mg PO DAILY Donepezil Hcl 10 Mg Tablet 10 Mg PO QHS Calcium 600 + Vit D 400 Tablet (Calcium Carbonate/Vitamin D3) 1 Each Tablet 1 Tab PO BIDACBL Ranitidine Hcl 150 Mg Tablet 150 Mg PO BID Aspirin Ec (Aspirin) 81 Mg Tablet.dr 81 Mg PO DAILY Multivitamins (Multivitamin) 1 Each Tablet 1 Tab PO BID Namenda Xr (Memantine Hcl) 28 Mg Cap.spr.24 28 Mg PO DAILY COY CISNEROS MD Apr 29, 2017 22:46
[2017-04-30] MEDS: QUEtiapine 25 MG TABLET. PO SCH ×2 (07:03→12:31)
[2017-04-30] MEDS: MULTIVITAMIN with MINERAL TABLET. PO SCH ×2 (07:03→19:53)
[2017-04-30] MEDS: busPIRone 5 MG TABLET. PO SCH ×3 (07:03→19:54)
[2017-04-30] MEDS: FAMOTIDINE 20 MG TABLET PO SCH ×2 (07:03→19:54)
[2017-04-30] MEDS: CITALOPRAM 10 MG TABLET. PO SCH (07:03)
[2017-04-30] MEDS: ASPIRIN ENTERIC COATED 81 MG TABLET.DR. PO SCH (07:03)
[2017-04-30] MEDS: FERROUS SULFATE 325 MG TABLET PO SCH (07:03)
[2017-04-30] MEDS: CALCIUM CARB/VIT D3 500/200 TABLET PO SCH ×2 (07:05→12:30)
[2017-04-30 07:22] LABS: BASO # 0.1 x10^3/uL (0.0-0.2); BASO % 1 % (0-3); EOS # 0.3 x10^3/uL (0.0-0.7); EOS % 6 % (0-3); HEMATOCRIT 42.1 % (36.0-47.0); HEMOGLOBIN 13.7 g/dL (12.0-15.5); LYMPH # 1.3 x10^3/uL (1.0-4.8); LYMPH % 25 % (24-48); MEAN CORPUSCULAR HEMOGLOBIN 29 pg (25-35); MEAN CORPUSCULAR HGB CONC 33 g/dL (31-37); MEAN CORPUSCULAR VOLUME 89 fL (79-100); MONO # 0.6 x10^3/uL (0.0-1.1); MONO % 12 % (0-9); NEUT # 2.9 x10^3uL (1.8-7.7); NEUT % 55 % (31-73); PLATELET COUNT 251 x10^3/uL (140-400); RED BLOOD COUNT 4.71 x10^6/uL (3.50-5.40); RED CELL DISTRIBUTION WIDTH 14.1 % (11.5-14.5); WHITE BLOOD COUNT 5.2 x10^3/uL (4.0-11.0)
[2017-04-30 08:40] LABS: ALBUMIN 3.3 g/dL (3.4-5.0); ALBUMIN/GLOBULIN RATIO 0.9 (1.0-1.7); CALCIUM 8.7 mg/dL (8.5-10.1); CREATININE 1.1 mg/dL (0.6-1.0); GFR 47.7; TOTAL BILIRUBIN 0.5 mg/dL (0.2-1.0); TOTAL PROTEIN 6.9 g/dL (6.4-8.2)
[2017-04-30] MEDS: CHOLECALCIFEROL (VITAMIN D3) 1,000 UNIT TABLET PO SCH (12:33)
[2017-04-30 16:37] VITALS: BP 118/76
[2017-04-30] MEDS: ATORVASTATIN CALCIUM 10 MG TABLET. PO SCH (19:53)
[2017-04-30] MEDS: DONEPEZIL HCL 5 MG TABLET. PO SCH (19:53)
[2017-04-30] MEDS: traZODone 50 MG TABLET. PO SCH (19:54)
[2017-04-30] MEDS: MIRTAZAPINE 7.5 MG TABLET. PO SCH (19:57)
--- NOTE | 2017-04-30 21:24 | PDOC ---
Exam Oneil Demential Exam: Oneil Note: Please also refer to the separate dictated note~for this date of service dictated separately.~Patient seen individually. Discussed the patient with Nursing staff reviewed the chart.~Reviewed interim history and current functioning. Reviewed vital signs,~Labs/ Radiology~and current medications noted below. Continue current treatment with the changes noted in the dictated addendum note Assessment: Vital Signs: Vital Signs Date Time Temp Pulse Resp B/P (MAP) Pulse Ox O2 Delivery O2 Flow Rate FiO2 04/30/17 16:37 98.5 79 18 118/76 (90) 92 Room Air I&O Intake and Output 04/30/17 07:00 Intake Total 1080 ml Balance 1080 ml Intake Oral 1080 ml Labs: Laboratory Tests Test 04/30/17 07:05 White Blood Count 5.2 x10^3/uL (4.0-11.0) Red Blood Count 4.71 x10^6/uL (3.50-5.40) Hemoglobin 13.7 g/dL (12.0-15.5) Hematocrit 42.1 % (36.0-47.0) Mean Corpuscular Volume 89 fL (79-100) Mean Corpuscular Hemoglobin 29 pg (25-35) Mean Corpuscular Hemoglobin Concent 33 g/dL (31-37) Red Cell Distribution Width 14.1 % (11.5-14.5) Platelet Count 251 x10^3/uL (140-400) Neutrophils (%) (Auto) 55 % (31-73) Lymphocytes (%) (Auto) 25 % (24-48) Monocytes (%) (Auto) 12 % (0-9) H Eosinophils (%) (Auto) 6 % (0-3) H Basophils (%) (Auto) 1 % (0-3) Neutrophils # (Auto) 2.9 x10^3uL (1.8-7.7) Lymphocytes # (Auto) 1.3 x10^3/uL (1.0-4.8) Monocytes # (Auto) 0.6 x10^3/uL (0.0-1.1) Eosinophils # (Auto) 0.3 x10^3/uL (0.0-0.7) Basophils # (Auto) 0.1 x10^3/uL (0.0-0.2) Sodium Level 143 mmol/L (136-145) Potassium Level 4.0 mmol/L (3.5-5.1) Chloride Level 106 mmol/L (98-107) Carbon Dioxide Level 29 mmol/L (21-32) Anion Gap 8 (6-14) Blood Urea Nitrogen 23 mg/dL (7-20) H Creatinine 1.1 mg/dL (0.6-1.0) H Estimated GFR (Cockcroft-Gault) 47.7 BUN/Creatinine Ratio 21 (6-20) H Glucose Level 85 mg/dL (70-99) Calcium Level 8.7 mg/dL (8.5-10.1) Magnesium Level 2.2 mg/dL (1.8-2.4) Total Bilirubin 0.5 mg/dL (0.2-1.0) Aspartate Amino Transferase (AST) 29 U/L (15-37) Alanine Aminotransferase (ALT) 27 U/L (14-59) Alkaline Phosphatase 94 U/L (46-116) Total Protein 6.9 g/dL (6.4-8.2) Albumin 3.3 g/dL (3.4-5.0) L Albumin/Globulin Ratio 0.9 (1.0-1.7) L Current Medications: Meds: Current Medications Acetaminophen (Tylenol) 650 mg PRN Q6HRS PRN PO PAIN / TEMP; Start 04/24/17 at 19:30 Multi-Ingredient Ointment (Analgesic [place]) 1 kalin PRN QID PRN TP MUSCLE PAIN; Start 04/24/17 at 19:30 Al Hydroxide/Mg Hydroxide (Mylanta Plus Xs) 15 ml PRN AFTMEALHC PRN PO DYSPEPSIA; Start 04/24/17 at 19:30 Magnesium Hydroxide (Milk Of Magnesia) 2,400 mg PRN QHS PRN PO CONSTIPATION; Start 04/24/17 at 19:30 Citalopram Hydrobromide (CeleXA) 10 mg DAILY PO Last administered on 04/30/17 07:03; Start 04/25/17 at 09:00 Donepezil HCl (Aricept) 10 mg QHS PO Last administered on 04/26/17 19:55; Start 04/24/17 at 21:30; Stop 04/27/17 at 10:47; Status DC Quetiapine Fumarate (SEROquel) 12.5 mg PRN Q6HRS PRN PO PSYCHOSIS; Start at 21:00; Stop 04/30/17 at 19:37; Status DC Quetiapine Fumarate (SEROquel) 25 mg TID PO Last administered on 04/28/17 13: 26; Start 04/24/17 at 21:30; Stop 04/28/17 at 18:19; Status DC Trazodone HCl (Desyrel) 25 mg QHS PO Last administered on 04/30/17 19:54; Start 04/24/17 at 21:30 Memantine (Namenda) 10 mg BID PO Last administered on 04/27/17 07:46; Start at 09:00; Stop 04/27/17 at 10:47; Status DC Trazodone HCl (Desyrel) 25 mg QHS PO ; Start 04/25/17 at 21:00; Status UNV Aspirin (Aspirin Enteric Coated) 81 mg DAILY PO Last administered on 04/30/17 07:03; Start 04/25/17 at 09:00 Calcium/Vitamin D (Oscal D 500mg/ 200uts) 1 tab BIDACBL PO Last administered on 04/30/17 12:30; Start 04/25/17 at 07:30 Cetirizine HCl (ZyrTEC) 10 mg PRN DAILY PRN PO ALLERGIES; Start 04/25/17 at 09: 00 Multivitamins/ Calcium (Thera-M Plus) 1 tab BID PO Last administered on 19:53; Start 04/25/17 at 09:00 Famotidine (Pepcid) 20 mg BID PO Last administered on 04/30/17 19:54; Start at 22:00 Buspirone HCl (Buspar) 5 mg BID92 PO Last administered on 04/28/17 13:22; Start 04/26/17 at 09:00; Stop 04/28/17 at 18:19; Status DC Olanzapine (ZyPREXA ZYDIS) 2.5 mg PRN Q2HR PRN PO PSYCHOSIS Last administered on 04/30/17 12:31; Start 04/25/17 at 20:45 Trazodone HCl (Desyrel) 25 mg PRN QHS PRN PO INSOMNIA Last administered on 04/29 19:23; Start 04/26/17 at 22:00 Donepezil HCl (Aricept) 5 mg QHS PO Last administered on 04/30/17 19:53; Start 04/27/17 at 21:00 Memantine (Namenda) 10 mg DAILY PO Last administered on 04/28/17 07:44; Start 04/28/17 at 09:00; Stop 04/29/17 at 00:00; Status DC Atorvastatin Calcium (Lipitor) 10 mg QHS PO Last administered on 04/30/17 19: 53; Start 04/27/17 at 21:00 Vitamin D (Vitamin D3) 1,000 unit DAILYBFRSUP PO Last administered on 12:33; Start 04/27/17 at 17:00 Ferrous Sulfate (Feosol) 325 mg DAILYWBKFT PO Last administered on 04/30/17 07 :03; Start 04/28/17 at 08:00 Vitamin D (Vitamin D3) 1,000 unit STK-MED ONCE .ROUTE ; Start 04/27/17 at 14:14 ; Stop 04/27/17 at 14:15; Status DC Buspirone HCl (Buspar) 5 mg [id number] PO Last administered on 04/30/17 19:54; Start 04/28/17 at 21:00 Quetiapine Fumarate (SEROquel) 25 mg BID92 PO Last administered on 04/30/17 12 :31; Start 04/29/17 at 09:00; Stop 04/30/17 at 19:37; Status DC Mirtazapine (Remeron) 7.5 mg QHS PO Last administered on 04/30/17 19:57; Start 04/30/17 at 21:00 Quetiapine Fumarate (SEROquel) 25 mg DAILY PO ; Start 05/01/17 at 09:00 Active Scripts Active Reported Trazodone Hcl 50 Mg Tablet 25 Mg PO PRN QHS PRN Trazodone Hcl 50 Mg Tablet 25 Mg PO QHS Seroquel (Quetiapine Fumarate) 25 Mg Tablet 12.5 Mg PO PRN Q6HRS PRN Seroquel (Quetiapine Fumarate) 25 Mg Tablet 25 Mg PO TID Claritin (Loratadine) 10 Mg Tablet 10 Mg PO PRN DAILY PRN Celexa (Citalopram Hydrobromide) 10 Mg Tablet 10 Mg PO DAILY Donepezil Hcl 10 Mg Tablet 10 Mg PO QHS Calcium 600 + Vit D 400 Tablet (Calcium Carbonate/Vitamin D3) 1 Each Tablet 1 Tab PO BIDACBL Ranitidine Hcl 150 Mg Tablet 150 Mg PO BID Aspirin Ec (Aspirin) 81 Mg Tablet.dr 81 Mg PO DAILY Multivitamins (Multivitamin) 1 Each Tablet 1 Tab PO BID Namenda Xr (Memantine Hcl) 28 Mg Cap.spr.24 28 Mg PO DAILY COY CISNEROS MD Apr 30, 2017 21:24
--- NOTE | 2017-05-01 01:08 | PN ---
DATE: 04/29/2017 This entry for 04/29/2017 covers elements not covered in my initial note. SUBJECTIVE: The patient has been wandering, irritable at times. Family visited her, received Zyprexa twice p.r.n. She did not sleep very much at all the previous night. REVIEW OF SYSTEMS: No CV, , pulmonary, eye, ENT system symptoms on review. Reliability poor. MENTAL STATUS EXAM: Oriented to herself. Insight, judgment, recent and remote memory, attention, concentration, fund of knowledge poor, consistent with her diagnosis as mentioned in my initial note. IMPRESSION: Major neurocognitive disorder, Alzheimer, vascular with depression, delusion and behavioral disturbance. Rest unchanged. PLAN: Continue Namenda 10 mg daily one more dose and then stop it, Aricept reduced to 5 mg at bedtime and then stop it. Continue Celexa 10 mg a day, Seroquel 25 mg b.i.d., trazodone 25 mg at bedtime, march repeat x 1, Zyprexa p.r.n., BuSpar 5 mg t.i.d., start Remeron 7.5 mg at bedtime. Adjust further as clinically indicated. COY CISNEROS MD DR: CEM/nicolle JOB#: [id number] / [id number]
--- NOTE | 2017-05-01 02:06 | PN ---
DATE: 04/30/2017 PSYCHIATRIC PROGRESS NOTE This note covers elements not covered in my initial note of 04/30/2017. SUBJECTIVE: The patient remains confused. She has been checking the exit doors. Daughter visited and the nursing staff informed me daughter would like to see the patient off Seroquel. We are tapering this, but we will have to see how she does and whether we are able to take her off it or not. REVIEW OF SYSTEMS: No CV, , eye, ENT or pulmonary system symptoms on review. Reliability poor. MENTAL STATUS EXAM: Oriented to herself. Insight, judgment, recent and remote memory, attention, concentration, fund of knowledge poor, consistent with her diagnoses mentioned in my initial note. IMPRESSION: Major neurocognitive disorder, Alzheimer, vascular with delusion, depression, behavioral disturbance. PLAN: She has been checking exit doors today. We will reduce the Seroquel from 25 b.i.d. to 25 mg once a day. Maintain the rest of the psychotropics mentioned in my initial note. May need to increase BuSpar further for anxiety. MAN Melvin CISNEROS MD DR: CEM/nicolle JOB#: [id number] / [id number]
[2017-05-01 06:27] VITALS: BP 125/78
[2017-05-01] MEDS: CALCIUM CARB/VIT D3 500/200 TABLET PO SCH ×2 (08:20→11:30)
[2017-05-01] MEDS: FAMOTIDINE 20 MG TABLET PO SCH ×2 (08:20→19:18)
[2017-05-01] MEDS: busPIRone 5 MG TABLET. PO SCH ×3 (08:20→19:18)
[2017-05-01] MEDS: FERROUS SULFATE 325 MG TABLET PO SCH (08:20)
[2017-05-01] MEDS: ASPIRIN ENTERIC COATED 81 MG TABLET.DR. PO SCH (08:20)
[2017-05-01] MEDS: CITALOPRAM 10 MG TABLET. PO SCH (08:20)
[2017-05-01] MEDS: MULTIVITAMIN with MINERAL TABLET. PO SCH ×2 (08:20→19:19)
[2017-05-01] MEDS: QUEtiapine 25 MG TABLET. PO SCH (08:22)
[2017-05-01] MEDS: CHOLECALCIFEROL (VITAMIN D3) 1,000 UNIT TABLET PO SCH (08:22)
[2017-05-01 16:54] VITALS: BP 159/71
[2017-05-01] MEDS: MIRTAZAPINE 7.5 MG TABLET. PO SCH (19:18)
[2017-05-01] MEDS: DONEPEZIL HCL 5 MG TABLET. PO SCH (19:18)
[2017-05-01] MEDS: ATORVASTATIN CALCIUM 10 MG TABLET. PO SCH (19:19)
[2017-05-01] MEDS: traZODone 50 MG TABLET. PO SCH (19:19)
--- NOTE | 2017-05-01 22:49 | PDOC ---
Exam Oneil Demential Exam: Oneil Note: Please also refer to the separate dictated note~for this date of service dictated separately.~Patient seen individually. Discussed the patient with Nursing staff reviewed the chart.~Reviewed interim history and current functioning. Reviewed vital signs,~Labs/ Radiology~and current medications noted below. Continue current treatment with the changes noted in the dictated addendum note Assessment: Vital Signs: Vital Signs Date Time Temp Pulse Resp B/P (MAP) Pulse Ox O2 Delivery O2 Flow Rate FiO2 05/01/17 16:54 97.7 64 19 159/71 (100) 98 04/30/17 16:37 Room Air I&O Intake and Output 05/01/17 07:00 Intake Total 960 ml Balance 960 ml Intake Oral 960 ml Current Medications: Meds: Current Medications Acetaminophen (Tylenol) 650 mg PRN Q6HRS PRN PO PAIN / TEMP; Start 04/24/17 at 19:30 Multi-Ingredient Ointment (Analgesic [place]) 1 kalin PRN QID PRN TP MUSCLE PAIN; Start 04/24/17 at 19:30 Al Hydroxide/Mg Hydroxide (Mylanta Plus Xs) 15 ml PRN AFTMEALHC PRN PO DYSPEPSIA; Start 04/24/17 at 19:30 Magnesium Hydroxide (Milk Of Magnesia) 2,400 mg PRN QHS PRN PO CONSTIPATION; Start 04/24/17 at 19:30 Citalopram Hydrobromide (CeleXA) 10 mg DAILY PO Last administered on 05/01/17 08:20; Start 04/25/17 at 09:00 Donepezil HCl (Aricept) 10 mg QHS PO Last administered on 04/26/17 19:55; Start 04/24/17 at 21:30; Stop 04/27/17 at 10:47; Status DC Quetiapine Fumarate (SEROquel) 12.5 mg PRN Q6HRS PRN PO PSYCHOSIS; Start at 21:00; Stop 04/30/17 at 19:37; Status DC Quetiapine Fumarate (SEROquel) 25 mg TID PO Last administered on 04/28/17 13: 26; Start 04/24/17 at 21:30; Stop 04/28/17 at 18:19; Status DC Trazodone HCl (Desyrel) 25 mg QHS PO Last administered on 05/01/17 19:19; Start 04/24/17 at 21:30 Memantine (Namenda) 10 mg BID PO Last administered on 04/27/17 07:46; Start at 09:00; Stop 04/27/17 at 10:47; Status DC Trazodone HCl (Desyrel) 25 mg QHS PO ; Start 04/25/17 at 21:00; Status UNV Aspirin (Aspirin Enteric Coated) 81 mg DAILY PO Last administered on 05/01/17 08:20; Start 04/25/17 at 09:00 Calcium/Vitamin D (Oscal D 500mg/ 200uts) 1 tab BIDACBL PO Last administered on 05/01/17 11:30; Start 04/25/17 at 07:30 Cetirizine HCl (ZyrTEC) 10 mg PRN DAILY PRN PO ALLERGIES; Start 04/25/17 at 09: 00 Multivitamins/ Calcium (Thera-M Plus) 1 tab BID PO Last administered on 19:19; Start 04/25/17 at 09:00 Famotidine (Pepcid) 20 mg BID PO Last administered on 05/01/17 19:18; Start at 22:00 Buspirone HCl (Buspar) 5 mg [id number] PO Last administered on 04/28/17 13:22; Start 04/26/17 at 09:00; Stop 04/28/17 at 18:19; Status DC Olanzapine (ZyPREXA ZYDIS) 2.5 mg PRN Q2HR PRN PO PSYCHOSIS Last administered on 04/30/17 12:31; Start 04/25/17 at 20:45 Trazodone HCl (Desyrel) 25 mg PRN QHS PRN PO INSOMNIA Last administered on 04/29 19:23; Start 04/26/17 at 22:00 Donepezil HCl (Aricept) 5 mg QHS PO Last administered on 05/01/17 19:18; Start 04/27/17 at 21:00 Memantine (Namenda) 10 mg DAILY PO Last administered on 04/28/17 07:44; Start 04/28/17 at 09:00; Stop 04/29/17 at 00:00; Status DC Atorvastatin Calcium (Lipitor) 10 mg QHS PO Last administered on 05/01/17 19: 19; Start 04/27/17 at 21:00 Vitamin D (Vitamin D3) 1,000 unit DAILYBFRSUP PO Last administered on 08:22; Start 04/27/17 at 17:00 Ferrous Sulfate (Feosol) 325 mg DAILYWBKFT PO Last administered on 05/01/17 08 :20; Start 04/28/17 at 08:00 Vitamin D (Vitamin D3) 1,000 unit STK-MED ONCE .ROUTE ; Start 04/27/17 at 14:14 ; Stop 04/27/17 at 14:15; Status DC Buspirone HCl (Buspar) 5 mg [id number] PO Last administered on 05/01/17 13:25; Start 04/28/17 at 21:00; Stop 05/01/17 at 18:02; Status DC Quetiapine Fumarate (SEROquel) 25 mg [id number] PO Last administered on 04/30/17 12 :31; Start 04/29/17 at 09:00; Stop 04/30/17 at 19:37; Status DC Mirtazapine (Remeron) 7.5 mg QHS PO Last administered on 05/01/17 19:18; Start 04/30/17 at 21:00 Quetiapine Fumarate (SEROquel) 25 mg DAILY PO Last administered on 05/01/17 08 :22; Start 05/01/17 at 09:00 Buspirone HCl (Buspar) 5 mg [id number] PO Last administered on 05/01/17 19:18; Start 05/01/17 at 21:00 Active Scripts Active Reported Trazodone Hcl 50 Mg Tablet 25 Mg PO PRN QHS PRN Trazodone Hcl 50 Mg Tablet 25 Mg PO QHS Seroquel (Quetiapine Fumarate) 25 Mg Tablet 12.5 Mg PO PRN Q6HRS PRN Seroquel (Quetiapine Fumarate) 25 Mg Tablet 25 Mg PO TID Claritin (Loratadine) 10 Mg Tablet 10 Mg PO PRN DAILY PRN Celexa (Citalopram Hydrobromide) 10 Mg Tablet 10 Mg PO DAILY Donepezil Hcl 10 Mg Tablet 10 Mg PO QHS Calcium 600 + Vit D 400 Tablet (Calcium Carbonate/Vitamin D3) 1 Each Tablet 1 Tab PO BIDACBL Ranitidine Hcl 150 Mg Tablet 150 Mg PO BID Aspirin Ec (Aspirin) 81 Mg Tablet.dr 81 Mg PO DAILY Multivitamins (Multivitamin) 1 Each Tablet 1 Tab PO BID Namenda Xr (Memantine Hcl) 28 Mg Cap.spr.24 28 Mg PO DAILY Diagnosis: Problems: (1) Anxiety disorder (2) Impulse control disorder (3) Dementia, vascular, with depression (4) Dementia, vascular, with delusions (5) Dementia in Alzheimer's disease with depression (6) Dementia in Alzheimer's disease with delusions COY CISNEROS MD May 01, 2017 22:49
[2017-05-02] MEDS: traZODone 50 MG TABLET. PO SCH ×2 (00:04→20:27)
--- NOTE | 2017-05-02 00:50 | PN ---
DATE: 05/01/2017 PSYCHIATRIC PROGRESS NOTE SUBJECTIVE: This patient was seen individually the evening of 05/01/2017. Discussed with nursing staff, reviewed the chart. Per nursing report, the patient is disorganized, wearing her bra and underwear outside her clothing, not exit seeking, tried to smack a nursing staff, compliant with her medications. REVIEW OF SYSTEMS: No CV, , pulmonary, eye, ENT system symptoms on review. Reliability poor. MENTAL STATUS EXAM: Oriented to herself. Insight, judgment, recent and remote memory, attention, concentration, fund of knowledge poor, consistent with her diagnosis mentioned in my initial note. IMPRESSION: Major neurocognitive disorder, Alzheimer, vascular with depression, delusion and behavioral disturbance. Rest unchanged. PLAN: Increase BuSpar from 5 mg t.i.d. to 5 mg 4 times a day. Continue Namenda, Aricept, Seroquel, Celexa, trazodone, Zyprexa, Remeron at current dosage. COY CISNEROS MD DR: CEM/nicolle JOB#: [id number] / [id number]
[2017-05-02 06:01] VITALS: BP 133/60
[2017-05-02] MEDS: ASPIRIN ENTERIC COATED 81 MG TABLET.DR. PO SCH (08:30)
[2017-05-02] MEDS: FERROUS SULFATE 325 MG TABLET PO SCH (08:30)
[2017-05-02] MEDS: CITALOPRAM 10 MG TABLET. PO SCH (08:30)
[2017-05-02] MEDS: busPIRone 5 MG TABLET. PO SCH ×4 (08:30→20:27)
[2017-05-02] MEDS: MULTIVITAMIN with MINERAL TABLET. PO SCH ×2 (08:30→20:27)
[2017-05-02] MEDS: QUEtiapine 25 MG TABLET. PO SCH (08:30)
[2017-05-02] MEDS: FAMOTIDINE 20 MG TABLET PO SCH ×2 (08:30→20:27)
[2017-05-02] MEDS: CALCIUM CARB/VIT D3 500/200 TABLET PO SCH ×2 (08:31→12:27)
[2017-05-02] MEDS: CHOLECALCIFEROL (VITAMIN D3) 1,000 UNIT TABLET PO SCH (08:32)
[2017-05-02 16:08] VITALS: BP 147/82
--- NOTE | 2017-05-02 20:03 | PDOC ---
Exam Oneil Demential Exam: Oneil Note: Please also refer to the separate dictated note~for this date of service dictated separately.~Patient seen individually. Discussed the patient with Nursing staff reviewed the chart.~Reviewed interim history and current functioning. Reviewed vital signs,~Labs/ Radiology~and current medications noted below. Continue current treatment with the changes noted in the dictated addendum note Assessment: Vital Signs: Vital Signs Date Time Temp Pulse Resp B/P (MAP) Pulse Ox O2 Delivery O2 Flow Rate FiO2 05/02/17 16:08 97.5 69 18 147/82 (103) 95 05/02/17 06:01 Room Air I&O Intake and Output 05/02/17 07:00 Intake Total 840 ml Balance 840 ml Intake Oral 840 ml Current Medications: Meds: Current Medications Acetaminophen (Tylenol) 650 mg PRN Q6HRS PRN PO PAIN / TEMP; Start 04/24/17 at 19:30 Multi-Ingredient Ointment (Analgesic [place]) 1 kalin PRN QID PRN TP MUSCLE PAIN; Start 04/24/17 at 19:30 Al Hydroxide/Mg Hydroxide (Mylanta Plus Xs) 15 ml PRN AFTMEALHC PRN PO DYSPEPSIA; Start 04/24/17 at 19:30 Magnesium Hydroxide (Milk Of Magnesia) 2,400 mg PRN QHS PRN PO CONSTIPATION; Start 04/24/17 at 19:30 Citalopram Hydrobromide (CeleXA) 10 mg DAILY PO Last administered on 05/02/17 08:30; Start 04/25/17 at 09:00 Donepezil HCl (Aricept) 10 mg QHS PO Last administered on 04/26/17 19:55; Start 04/24/17 at 21:30; Stop 04/27/17 at 10:47; Status DC Quetiapine Fumarate (SEROquel) 12.5 mg PRN Q6HRS PRN PO PSYCHOSIS; Start at 21:00; Stop 04/30/17 at 19:37; Status DC Quetiapine Fumarate (SEROquel) 25 mg TID PO Last administered on 04/28/17 13: 26; Start 04/24/17 at 21:30; Stop 04/28/17 at 18:19; Status DC Trazodone HCl (Desyrel) 25 mg QHS PO Last administered on 05/02/17 00:04; Start 04/24/17 at 21:30; Stop 05/02/17 at 18:41; Status DC Memantine (Namenda) 10 mg BID PO Last administered on 04/27/17 07:46; Start at 09:00; Stop 04/27/17 at 10:47; Status DC Trazodone HCl (Desyrel) 25 mg QHS PO ; Start 04/25/17 at 21:00; Status UNV Aspirin (Aspirin Enteric Coated) 81 mg DAILY PO Last administered on 05/02/17 08:30; Start 04/25/17 at 09:00 Calcium/Vitamin D (Oscal D 500mg/ 200uts) 1 tab BIDACBL PO Last administered on 05/02/17 12:27; Start 04/25/17 at 07:30 Cetirizine HCl (ZyrTEC) 10 mg PRN DAILY PRN PO ALLERGIES; Start 04/25/17 at 09: 00 Multivitamins/ Calcium (Thera-M Plus) 1 tab BID PO Last administered on 08:30; Start 04/25/17 at 09:00 Famotidine (Pepcid) 20 mg BID PO Last administered on 05/02/17 08:30; Start at 22:00 Buspirone HCl (Buspar) 5 mg [id number] PO Last administered on 04/28/17 13:22; Start 04/26/17 at 09:00; Stop 04/28/17 at 18:19; Status DC Olanzapine (ZyPREXA ZYDIS) 2.5 mg PRN Q2HR PRN PO PSYCHOSIS Last administered on 05/02/17 00:04; Start 04/25/17 at 20:45 Trazodone HCl (Desyrel) 25 mg PRN QHS PRN PO INSOMNIA Last administered on 04/29 19:23; Start 04/26/17 at 22:00; Stop 05/02/17 at 18:41; Status DC Donepezil HCl (Aricept) 5 mg QHS PO Last administered on 05/01/17 19:18; Start 04/27/17 at 21:00 Memantine (Namenda) 10 mg DAILY PO Last administered on 04/28/17 07:44; Start 04/28/17 at 09:00; Stop 04/29/17 at 00:00; Status DC Atorvastatin Calcium (Lipitor) 10 mg QHS PO Last administered on 05/01/17 19: 19; Start 04/27/17 at 21:00 Vitamin D (Vitamin D3) 1,000 unit DAILYBFRSUP PO Last administered on 08:32; Start 04/27/17 at 17:00 Ferrous Sulfate (Feosol) 325 mg DAILYWBKFT PO Last administered on 05/02/17 08 :30; Start 04/28/17 at 08:00 Vitamin D (Vitamin D3) 1,000 unit STK-MED ONCE .ROUTE ; Start 04/27/17 at 14:14 ; Stop 04/27/17 at 14:15; Status DC Buspirone HCl (Buspar) 5 mg [id number] PO Last administered on 05/01/17 13:25; Start 04/28/17 at 21:00; Stop 05/01/17 at 18:02; Status DC Quetiapine Fumarate (SEROquel) 25 mg [id number] PO Last administered on 04/30/17 12 :31; Start 04/29/17 at 09:00; Stop 04/30/17 at 19:37; Status DC Mirtazapine (Remeron) 7.5 mg QHS PO Last administered on 05/01/17 19:18; Start 04/30/17 at 21:00; Stop 05/02/17 at 18:41; Status DC Quetiapine Fumarate (SEROquel) 25 mg DAILY PO Last administered on 05/02/17 08 :30; Start 05/01/17 at 09:00 Buspirone HCl (Buspar) 5 mg [id number] PO Last administered on 05/02/17 17:15; Start 05/01/17 at 21:00 Mirtazapine (Remeron) 15 mg QHS PO ; Start 05/02/17 at 21:00 Trazodone HCl (Desyrel) 50 mg QHS PO ; Start 05/02/17 at 21:00 Trazodone HCl (Desyrel) 50 mg PRN 1X PRN PO INSOMNIA; Start 05/02/17 at 22:00 Melatonin 3 mg HS PO ; Start 05/02/17 at 21:00 Active Scripts Active Reported Trazodone Hcl 50 Mg Tablet 25 Mg PO PRN QHS PRN Trazodone Hcl 50 Mg Tablet 25 Mg PO QHS Seroquel (Quetiapine Fumarate) 25 Mg Tablet 12.5 Mg PO PRN Q6HRS PRN Seroquel (Quetiapine Fumarate) 25 Mg Tablet 25 Mg PO TID Claritin (Loratadine) 10 Mg Tablet 10 Mg PO PRN DAILY PRN Celexa (Citalopram Hydrobromide) 10 Mg Tablet 10 Mg PO DAILY Donepezil Hcl 10 Mg Tablet 10 Mg PO QHS Calcium 600 + Vit D 400 Tablet (Calcium Carbonate/Vitamin D3) 1 Each Tablet 1 Tab PO BIDACBL Ranitidine Hcl 150 Mg Tablet 150 Mg PO BID Aspirin Ec (Aspirin) 81 Mg Tablet.dr 81 Mg PO DAILY Multivitamins (Multivitamin) 1 Each Tablet 1 Tab PO BID Namenda Xr (Memantine Hcl) 28 Mg Cap.spr.24 28 Mg PO DAILY Diagnosis: Problems: (1) Anxiety disorder (2) Impulse control disorder (3) Dementia, vascular, with depression (4) Dementia, vascular, with delusions (5) Dementia in Alzheimer's disease with depression (6) Dementia in Alzheimer's disease with delusions COY CISNEROS MD May 02, 2017 20:03
[2017-05-02] MEDS: DONEPEZIL HCL 5 MG TABLET. PO SCH (20:27)
[2017-05-02] MEDS: ATORVASTATIN CALCIUM 10 MG TABLET. PO SCH (20:27)
[2017-05-02] MEDS: MELATONIN 3 MG TABLET PO SCH (20:29)
[2017-05-02] MEDS: MIRTAZAPINE 15 MG TABLET PO SCH (20:29)
[2017-05-02] MEDS ORDERED: traZODone 50 MG TABLET. PO PRN (22:00)
[2017-05-03 04:08] LABS: HEMOGLOBIN A1C 5.3 % (4.8-5.6)
--- NOTE | 2017-05-03 04:14 | PN ---
DATE: 05/02/2017 This note covers the elements not covered in my initial note of 05/02/2017. SUBJECTIVE: The patient was seen individually evening of 05/02/2017. Per nursing report, she remains disorganized, resistive to cares, did not sleep at all last night, intrusive, getting into other patient's rooms at night. Does take her medications. REVIEW OF SYSTEMS: No CV, , pulmonary, eye, ENT system symptoms on review. Reliability poor. MENTAL STATUS EXAM: Oriented to herself. Insight, judgment, recent and remote memory, attention, concentration, fund of knowledge poor, consistent with her diagnosis mentioned in my initial note. PLAN: Increase trazodone to 50 mg at bedtime, may repeat x 1 for insomnia, increase Remeron to 15 mg at bedtime, start melatonin 3 mg at bedtime. Maintain the rest of the psychotropics mentioned in my initial note. MAN Melvin CISNEROS MD DR: CEM/nicolle JOB#: [id number] / [id number]
[2017-05-03 05:52] VITALS: BP 150/89
[2017-05-03] MEDS: QUEtiapine 25 MG TABLET. PO SCH (09:09)
[2017-05-03] MEDS: CALCIUM CARB/VIT D3 500/200 TABLET PO SCH ×2 (09:09→11:30)
[2017-05-03] MEDS: FERROUS SULFATE 325 MG TABLET PO SCH (09:10)
[2017-05-03] MEDS: busPIRone 5 MG TABLET. PO SCH ×4 (09:10→19:45)
[2017-05-03] MEDS: ASPIRIN ENTERIC COATED 81 MG TABLET.DR. PO SCH (09:10)
[2017-05-03] MEDS: CITALOPRAM 10 MG TABLET. PO SCH (09:10)
[2017-05-03] MEDS: CHOLECALCIFEROL (VITAMIN D3) 1,000 UNIT TABLET PO SCH (09:10)
[2017-05-03] MEDS: FAMOTIDINE 20 MG TABLET PO SCH ×2 (09:10→19:44)
[2017-05-03] MEDS: MULTIVITAMIN with MINERAL TABLET. PO SCH ×2 (09:10→19:44)
[2017-05-03 16:09] VITALS: BP 115/60
[2017-05-03] MEDS: ATORVASTATIN CALCIUM 10 MG TABLET. PO SCH (19:44)
[2017-05-03] MEDS: DONEPEZIL HCL 5 MG TABLET. PO SCH (19:44)
[2017-05-03] MEDS: MIRTAZAPINE 15 MG TABLET PO SCH (19:44)
[2017-05-03] MEDS: traZODone 50 MG TABLET. PO SCH (19:45)
[2017-05-03] MEDS: MELATONIN 3 MG TABLET PO SCH (19:45)
--- NOTE | 2017-05-03 20:26 | PDOC ---
Exam Oneil Demential Exam: Oneil Note: Please also refer to the separate dictated note~for this date of service dictated separately.~Patient seen individually. Discussed the patient with Nursing staff reviewed the chart.~Reviewed interim history and current functioning. Reviewed vital signs,~Labs/ Radiology~and current medications noted below. Continue current treatment with the changes noted in the dictated addendum note Assessment: Vital Signs: Vital Signs Date Time Temp Pulse Resp B/P (MAP) Pulse Ox O2 Delivery O2 Flow Rate FiO2 05/03/17 16:09 98.3 86 20 115/60 (78) 94 Room Air I&O Intake and Output 05/03/17 07:00 Intake Total 840 ml Balance 840 ml Intake Oral 840 ml Current Medications: Meds: Current Medications Acetaminophen (Tylenol) 650 mg PRN Q6HRS PRN PO PAIN / TEMP; Start 04/24/17 at 19:30 Multi-Ingredient Ointment (Analgesic [place]) 1 kalin PRN QID PRN TP MUSCLE PAIN; Start 04/24/17 at 19:30 Al Hydroxide/Mg Hydroxide (Mylanta Plus Xs) 15 ml PRN AFTMEALHC PRN PO DYSPEPSIA; Start 04/24/17 at 19:30 Magnesium Hydroxide (Milk Of Magnesia) 2,400 mg PRN QHS PRN PO CONSTIPATION; Start 04/24/17 at 19:30 Citalopram Hydrobromide (CeleXA) 10 mg DAILY PO Last administered on 05/03/17 09:10; Start 04/25/17 at 09:00 Donepezil HCl (Aricept) 10 mg QHS PO Last administered on 04/26/17 19:55; Start 04/24/17 at 21:30; Stop 04/27/17 at 10:47; Status DC Quetiapine Fumarate (SEROquel) 12.5 mg PRN Q6HRS PRN PO PSYCHOSIS; Start at 21:00; Stop 04/30/17 at 19:37; Status DC Quetiapine Fumarate (SEROquel) 25 mg TID PO Last administered on 04/28/17 13: 26; Start 04/24/17 at 21:30; Stop 04/28/17 at 18:19; Status DC Trazodone HCl (Desyrel) 25 mg QHS PO Last administered on 05/02/17 00:04; Start 04/24/17 at 21:30; Stop 05/02/17 at 18:41; Status DC Memantine (Namenda) 10 mg BID PO Last administered on 04/27/17 07:46; Start at 09:00; Stop 04/27/17 at 10:47; Status DC Trazodone HCl (Desyrel) 25 mg QHS PO ; Start 04/25/17 at 21:00; Status UNV Aspirin (Aspirin Enteric Coated) 81 mg DAILY PO Last administered on 05/03/17 09:10; Start 04/25/17 at 09:00 Calcium/Vitamin D (Oscal D 500mg/ 200uts) 1 tab BIDACBL PO Last administered on 05/03/17 09:09; Start 04/25/17 at 07:30 Cetirizine HCl (ZyrTEC) 10 mg PRN DAILY PRN PO ALLERGIES; Start 04/25/17 at 09: 00 Multivitamins/ Calcium (Thera-M Plus) 1 tab BID PO Last administered on 19:44; Start 04/25/17 at 09:00 Famotidine (Pepcid) 20 mg BID PO Last administered on 05/03/17 19:44; Start at 22:00 Buspirone HCl (Buspar) 5 mg [id number] PO Last administered on 04/28/17 13:22; Start 04/26/17 at 09:00; Stop 04/28/17 at 18:19; Status DC Olanzapine (ZyPREXA ZYDIS) 2.5 mg PRN Q2HR PRN PO PSYCHOSIS Last administered on 05/03/17 13:11; Start 04/25/17 at 20:45 Trazodone HCl (Desyrel) 25 mg PRN QHS PRN PO INSOMNIA Last administered on 04/29 19:23; Start 04/26/17 at 22:00; Stop 05/02/17 at 18:41; Status DC Donepezil HCl (Aricept) 5 mg QHS PO Last administered on 05/03/17 19:44; Start 04/27/17 at 21:00 Memantine (Namenda) 10 mg DAILY PO Last administered on 04/28/17 07:44; Start 04/28/17 at 09:00; Stop 04/29/17 at 00:00; Status DC Atorvastatin Calcium (Lipitor) 10 mg QHS PO Last administered on 05/03/17 19: 44; Start 04/27/17 at 21:00 Vitamin D (Vitamin D3) 1,000 unit DAILYBFRSUP PO Last administered on 09:10; Start 04/27/17 at 17:00 Ferrous Sulfate (Feosol) 325 mg DAILYWBKFT PO Last administered on 05/03/17 09 :10; Start 04/28/17 at 08:00 Vitamin D (Vitamin D3) 1,000 unit STK-MED ONCE .ROUTE ; Start 04/27/17 at 14:14 ; Stop 04/27/17 at 14:15; Status DC Buspirone HCl (Buspar) 5 mg [id number] PO Last administered on 05/01/17 13:25; Start 04/28/17 at 21:00; Stop 05/01/17 at 18:02; Status DC Quetiapine Fumarate (SEROquel) 25 mg [id number] PO Last administered on 04/30/17 12 :31; Start 04/29/17 at 09:00; Stop 04/30/17 at 19:37; Status DC Mirtazapine (Remeron) 7.5 mg QHS PO Last administered on 05/01/17 19:18; Start 04/30/17 at 21:00; Stop 05/02/17 at 18:41; Status DC Quetiapine Fumarate (SEROquel) 25 mg DAILY PO Last administered on 05/03/17 09 :09; Start 05/01/17 at 09:00 Buspirone HCl (Buspar) 5 mg [id number] PO Last administered on 05/03/17 19:45; Start 05/01/17 at 21:00 Mirtazapine (Remeron) 15 mg QHS PO Last administered on 05/03/17 19:44; Start 05/02/17 at 21:00 Trazodone HCl (Desyrel) 50 mg QHS PO Last administered on 05/03/17 19:45; Start 05/02/17 at 21:00 Trazodone HCl (Desyrel) 50 mg PRN 1X PRN PO INSOMNIA; Start 05/02/17 at 22:00 Melatonin 3 mg HS PO Last administered on 05/03/17t 19:45; Start 05/02/17 at 21 :00 Divalproex Sodium (Depakote Sprinkles) 125 mg BID92 PO ; Start 05/04/17 at 09:00 Active Scripts Active Reported Trazodone Hcl 50 Mg Tablet 25 Mg PO PRN QHS PRN Trazodone Hcl 50 Mg Tablet 25 Mg PO QHS Seroquel (Quetiapine Fumarate) 25 Mg Tablet 12.5 Mg PO PRN Q6HRS PRN Seroquel (Quetiapine Fumarate) 25 Mg Tablet 25 Mg PO TID Claritin (Loratadine) 10 Mg Tablet 10 Mg PO PRN DAILY PRN Celexa (Citalopram Hydrobromide) 10 Mg Tablet 10 Mg PO DAILY Donepezil Hcl 10 Mg Tablet 10 Mg PO QHS Calcium 600 + Vit D 400 Tablet (Calcium Carbonate/Vitamin D3) 1 Each Tablet 1 Tab PO BIDACBL Ranitidine Hcl 150 Mg Tablet 150 Mg PO BID Aspirin Ec (Aspirin) 81 Mg Tablet.dr 81 Mg PO DAILY Multivitamins (Multivitamin) 1 Each Tablet 1 Tab PO BID Namenda Xr (Memantine Hcl) 28 Mg Cap.spr.24 28 Mg PO DAILY Diagnosis: Problems: (1) Anxiety disorder (2) Impulse control disorder (3) Dementia, vascular, with depression (4) Dementia, vascular, with delusions (5) Dementia in Alzheimer's disease with depression (6) Dementia in Alzheimer's disease with delusions COY CISNEROS MD May 03, 2017 20:26
--- NOTE | 2017-05-04 01:20 | PN ---
DATE: 05/03/2017 This note covers elements not covered in my initial note of 05/03/2017. SUBJECTIVE: The patient was seen individually evening of 05/03/2017. Per nursing report, she slept reasonably well, quite alert at breakfast time and in the morning. After lunch, she was intrusive, striking out to nursing staff, throwing things into trashcan, hitting at staff. REVIEW OF SYSTEMS: No CV, , pulmonary, eye, ENT system symptoms on review. Reliability poor. MENTAL STATUS EXAM: Oriented to herself. Insight, judgment, recent and remote memory, attention, concentration, fund of knowledge poor, consistent with her diagnosis mentioned in my initial note. PLAN: Continue psychotropics mentioned in my initial note. Start Depakote Sprinkles 125 mg twice a day. Check labs and level in 3 days. Consider stopping the Seroquel in the next day or 2. MAN Melvin CISNEROS MD DR: CEM/nicolle JOB#: [id number] / [id number]
[2017-05-04 06:14] VITALS: BP 124/70
[2017-05-04] MEDS: ASPIRIN ENTERIC COATED 81 MG TABLET.DR. PO SCH (08:31)
[2017-05-04] MEDS: CITALOPRAM 10 MG TABLET. PO SCH (08:31)
[2017-05-04] MEDS: busPIRone 5 MG TABLET. PO SCH ×4 (08:32→19:44)
[2017-05-04] MEDS: MULTIVITAMIN with MINERAL TABLET. PO SCH ×2 (08:32→19:43)
[2017-05-04] MEDS: CALCIUM CARB/VIT D3 500/200 TABLET PO SCH ×2 (08:32→13:08)
[2017-05-04] MEDS: FERROUS SULFATE 325 MG TABLET PO SCH (08:32)
[2017-05-04] MEDS: FAMOTIDINE 20 MG TABLET PO SCH ×2 (08:32→19:43)
[2017-05-04] MEDS: QUEtiapine 25 MG TABLET. PO SCH (08:32)
[2017-05-04] MEDS: DIVALPROEX 125 MG CAP.SPRINK PO SCH ×2 (08:33→13:08)
[2017-05-04] MEDS: CHOLECALCIFEROL (VITAMIN D3) 1,000 UNIT TABLET PO SCH (17:07)
[2017-05-04] MEDS: MELATONIN 3 MG TABLET PO SCH (19:43)
[2017-05-04] MEDS: DONEPEZIL HCL 5 MG TABLET. PO SCH (19:43)
[2017-05-04] MEDS: ATORVASTATIN CALCIUM 10 MG TABLET. PO SCH (19:43)
[2017-05-04] MEDS: MIRTAZAPINE 15 MG TABLET PO SCH (19:43)
[2017-05-04] MEDS: traZODone 50 MG TABLET. PO SCH (19:44)
--- NOTE | 2017-05-04 19:54 | PDOC ---
Exam Oneil Demential Exam: Oneil Note: Please also refer to the separate dictated note~for this date of service dictated separately.~Patient seen individually. Discussed the patient with Nursing staff reviewed the chart.~Reviewed interim history and current functioning. Reviewed vital signs,~Labs/ Radiology~and current medications noted below. Continue current treatment with the changes noted in the dictated addendum note Assessment: Vital Signs: Vital Signs Date Time Temp Pulse Resp B/P (MAP) Pulse Ox O2 Delivery O2 Flow Rate FiO2 05/04/17 16:54 18 05/04/17 06:14 98.7 74 124/70 (88) 94 05/03/17 16:09 Room Air I&O Intake and Output 05/04/17 07:00 Intake Total 1320 ml Balance 1320 ml Intake Oral 1320 ml Current Medications: Meds: Current Medications Acetaminophen (Tylenol) 650 mg PRN Q6HRS PRN PO PAIN / TEMP; Start 04/24/17 at 19:30 Multi-Ingredient Ointment (Analgesic [place]) 1 kalin PRN QID PRN TP MUSCLE PAIN; Start 04/24/17 at 19:30 Al Hydroxide/Mg Hydroxide (Mylanta Plus Xs) 15 ml PRN AFTMEALHC PRN PO DYSPEPSIA; Start 04/24/17 at 19:30 Magnesium Hydroxide (Milk Of Magnesia) 2,400 mg PRN QHS PRN PO CONSTIPATION; Start 04/24/17 at 19:30 Citalopram Hydrobromide (CeleXA) 10 mg DAILY PO Last administered on 05/04/17 08:31; Start 04/25/17 at 09:00 Donepezil HCl (Aricept) 10 mg QHS PO Last administered on 04/26/17 19:55; Start 04/24/17 at 21:30; Stop 04/27/17 at 10:47; Status DC Quetiapine Fumarate (SEROquel) 12.5 mg PRN Q6HRS PRN PO PSYCHOSIS; Start at 21:00; Stop 04/30/17 at 19:37; Status DC Quetiapine Fumarate (SEROquel) 25 mg TID PO Last administered on 04/28/17 13: 26; Start 04/24/17 at 21:30; Stop 04/28/17 at 18:19; Status DC Trazodone HCl (Desyrel) 25 mg QHS PO Last administered on 05/02/17 00:04; Start 04/24/17 at 21:30; Stop 05/02/17 at 18:41; Status DC Memantine (Namenda) 10 mg BID PO Last administered on 04/27/17 07:46; Start at 09:00; Stop 04/27/17 at 10:47; Status DC Trazodone HCl (Desyrel) 25 mg QHS PO ; Start 04/25/17 at 21:00; Status UNV Aspirin (Aspirin Enteric Coated) 81 mg DAILY PO Last administered on 05/04/17 08:31; Start 04/25/17 at 09:00 Calcium/Vitamin D (Oscal D 500mg/ 200uts) 1 tab BIDACBL PO Last administered on 05/04/17 13:08; Start 04/25/17 at 07:30 Cetirizine HCl (ZyrTEC) 10 mg PRN DAILY PRN PO ALLERGIES; Start 04/25/17 at 09: 00 Multivitamins/ Calcium (Thera-M Plus) 1 tab BID PO Last administered on 19:43; Start 04/25/17 at 09:00 Famotidine (Pepcid) 20 mg BID PO Last administered on 05/04/17 19:43; Start at 22:00 Buspirone HCl (Buspar) 5 mg [id number] PO Last administered on 04/28/17 13:22; Start 04/26/17 at 09:00; Stop 04/28/17 at 18:19; Status DC Olanzapine (ZyPREXA ZYDIS) 2.5 mg PRN Q2HR PRN PO PSYCHOSIS Last administered on 05/03/17 13:11; Start 04/25/17 at 20:45 Trazodone HCl (Desyrel) 25 mg PRN QHS PRN PO INSOMNIA Last administered on 04/29 19:23; Start 04/26/17 at 22:00; Stop 05/02/17 at 18:41; Status DC Donepezil HCl (Aricept) 5 mg QHS PO Last administered on 05/04/17 19:43; Start 04/27/17 at 21:00 Memantine (Namenda) 10 mg DAILY PO Last administered on 04/28/17 07:44; Start 04/28/17 at 09:00; Stop 04/29/17 at 00:00; Status DC Atorvastatin Calcium (Lipitor) 10 mg QHS PO Last administered on 05/04/17 19: 43; Start 04/27/17 at 21:00 Vitamin D (Vitamin D3) 1,000 unit DAILYBFRSUP PO Last administered on 17:07; Start 04/27/17 at 17:00 Ferrous Sulfate (Feosol) 325 mg DAILYWBKFT PO Last administered on 05/04/17 08 :32; Start 04/28/17 at 08:00 Vitamin D (Vitamin D3) 1,000 unit STK-MED ONCE .ROUTE ; Start 04/27/17 at 14:14 ; Stop 04/27/17 at 14:15; Status DC Buspirone HCl (Buspar) 5 mg [id number] PO Last administered on 05/01/17 13:25; Start 04/28/17 at 21:00; Stop 05/01/17 at 18:02; Status DC Quetiapine Fumarate (SEROquel) 25 mg [id number] PO Last administered on 04/30/17 12 :31; Start 04/29/17 at 09:00; Stop 04/30/17 at 19:37; Status DC Mirtazapine (Remeron) 7.5 mg QHS PO Last administered on 05/01/17 19:18; Start 04/30/17 at 21:00; Stop 05/02/17 at 18:41; Status DC Quetiapine Fumarate (SEROquel) 25 mg DAILY PO Last administered on 05/04/17 08 :32; Start 05/01/17 at 09:00 Buspirone HCl (Buspar) 5 mg [id number] PO Last administered on 05/04/17 19:44; Start 05/01/17 at 21:00 Mirtazapine (Remeron) 15 mg QHS PO Last administered on 05/04/17 19:43; Start 05/02/17 at 21:00 Trazodone HCl (Desyrel) 50 mg QHS PO Last administered on 6/22/17at 19:44; Start 05/02/17 at 21:00 Trazodone HCl (Desyrel) 50 mg PRN 1X PRN PO INSOMNIA; Start 05/02/17 at 22:00 Melatonin 3 mg HS PO Last administered on 05/04/17t 19:43; Start 05/02/17 at 21 :00 Divalproex Sodium (Depakote Sprinkles) 125 mg [id number] PO Last administered on t 13:08; Start 05/04/17 at 09:00 Active Scripts Active Reported Trazodone Hcl 50 Mg Tablet 25 Mg PO PRN QHS PRN Trazodone Hcl 50 Mg Tablet 25 Mg PO QHS Seroquel (Quetiapine Fumarate) 25 Mg Tablet 12.5 Mg PO PRN Q6HRS PRN Seroquel (Quetiapine Fumarate) 25 Mg Tablet 25 Mg PO TID Claritin (Loratadine) 10 Mg Tablet 10 Mg PO PRN DAILY PRN Celexa (Citalopram Hydrobromide) 10 Mg Tablet 10 Mg PO DAILY Donepezil Hcl 10 Mg Tablet 10 Mg PO QHS Calcium 600 + Vit D 400 Tablet (Calcium Carbonate/Vitamin D3) 1 Each Tablet 1 Tab PO BIDACBL Ranitidine Hcl 150 Mg Tablet 150 Mg PO BID Aspirin Ec (Aspirin) 81 Mg Tablet.dr 81 Mg PO DAILY Multivitamins (Multivitamin) 1 Each Tablet 1 Tab PO BID Namenda Xr (Memantine Hcl) 28 Mg Cap.spr.24 28 Mg PO DAILY Diagnosis: Problems: (1) Anxiety disorder (2) Impulse control disorder (3) Dementia, vascular, with depression (4) Dementia, vascular, with delusions (5) Dementia in Alzheimer's disease with depression (6) Dementia in Alzheimer's disease with delusions COY CISNEROS MD May 04, 2017 19:54
[2017-05-05 06:04] VITALS: BP 149/72
[2017-05-05] MEDS: FERROUS SULFATE 325 MG TABLET PO SCH (08:45)
[2017-05-05] MEDS: FAMOTIDINE 20 MG TABLET PO SCH ×2 (08:45→19:45)
[2017-05-05] MEDS: QUEtiapine 25 MG TABLET. PO SCH (08:45)
[2017-05-05] MEDS: MULTIVITAMIN with MINERAL TABLET. PO SCH ×2 (08:45→19:45)
[2017-05-05] MEDS: ASPIRIN ENTERIC COATED 81 MG TABLET.DR. PO SCH (08:45)
[2017-05-05] MEDS: busPIRone 5 MG TABLET. PO SCH ×4 (08:46→19:45)
[2017-05-05] MEDS: CITALOPRAM 10 MG TABLET. PO SCH (08:46)
[2017-05-05] MEDS: CALCIUM CARB/VIT D3 500/200 TABLET PO SCH ×2 (08:46→13:19)
[2017-05-05] MEDS: DIVALPROEX 125 MG CAP.SPRINK PO SCH ×2 (08:46→13:19)
[2017-05-05 16:38] VITALS: BP 113/56
[2017-05-05] MEDS: CHOLECALCIFEROL (VITAMIN D3) 1,000 UNIT TABLET PO SCH (18:02)
[2017-05-05] MEDS: traZODone 50 MG TABLET. PO SCH (19:45)
[2017-05-05] MEDS: MIRTAZAPINE 15 MG TABLET PO SCH (19:45)
[2017-05-05] MEDS: ATORVASTATIN CALCIUM 10 MG TABLET. PO SCH (19:45)
[2017-05-05] MEDS: MELATONIN 3 MG TABLET PO SCH (19:45)
[2017-05-05] MEDS: DONEPEZIL HCL 5 MG TABLET. PO SCH (19:45)
--- NOTE | 2017-05-05 20:07 | PDOC ---
Exam Oneil Demential Exam: Oneil Note: Please also refer to the separate dictated note~for this date of service dictated separately.~Patient seen individually. Discussed the patient with Nursing staff reviewed the chart.~Reviewed interim history and current functioning. Reviewed vital signs,~Labs/ Radiology~and current medications noted below. Continue current treatment with the changes noted in the dictated addendum note Assessment: Vital Signs: Vital Signs Date Time Temp Pulse Resp B/P (MAP) Pulse Ox O2 Delivery O2 Flow Rate FiO2 05/05/17 16:38 98.3 66 18 113/56 (75) 93 Room Air I&O Intake and Output 05/05/17 07:00 Intake Total 830 ml Balance 830 ml Intake Oral 830 ml Current Medications: Meds: Current Medications Acetaminophen (Tylenol) 650 mg PRN Q6HRS PRN PO PAIN / TEMP; Start 04/24/17 at 19:30 Multi-Ingredient Ointment (Analgesic [place]) 1 kalin PRN QID PRN TP MUSCLE PAIN; Start 04/24/17 at 19:30 Al Hydroxide/Mg Hydroxide (Mylanta Plus Xs) 15 ml PRN AFTMEALHC PRN PO DYSPEPSIA; Start 04/24/17 at 19:30 Magnesium Hydroxide (Milk Of Magnesia) 2,400 mg PRN QHS PRN PO CONSTIPATION; Start 04/24/17 at 19:30 Citalopram Hydrobromide (CeleXA) 10 mg DAILY PO Last administered on 05/05/17 08:46; Start 04/25/17 at 09:00 Donepezil HCl (Aricept) 10 mg QHS PO Last administered on 04/26/17 19:55; Start 04/24/17 at 21:30; Stop 04/27/17 at 10:47; Status DC Quetiapine Fumarate (SEROquel) 12.5 mg PRN Q6HRS PRN PO PSYCHOSIS; Start at 21:00; Stop 04/30/17 at 19:37; Status DC Quetiapine Fumarate (SEROquel) 25 mg TID PO Last administered on 04/28/17 13: 26; Start 04/24/17 at 21:30; Stop 04/28/17 at 18:19; Status DC Trazodone HCl (Desyrel) 25 mg QHS PO Last administered on 05/02/17 00:04; Start 04/24/17 at 21:30; Stop 05/02/17 at 18:41; Status DC Memantine (Namenda) 10 mg BID PO Last administered on 04/27/17 07:46; Start at 09:00; Stop 04/27/17 at 10:47; Status DC Trazodone HCl (Desyrel) 25 mg QHS PO ; Start 04/25/17 at 21:00; Status UNV Aspirin (Aspirin Enteric Coated) 81 mg DAILY PO Last administered on 05/05/17 08:45; Start 04/25/17 at 09:00 Calcium/Vitamin D (Oscal D 500mg/ 200uts) 1 tab BIDACBL PO Last administered on 05/05/17 13:19; Start 04/25/17 at 07:30 Cetirizine HCl (ZyrTEC) 10 mg PRN DAILY PRN PO ALLERGIES; Start 04/25/17 at 09: 00 Multivitamins/ Calcium (Thera-M Plus) 1 tab BID PO Last administered on 19:45; Start 04/25/17 at 09:00 Famotidine (Pepcid) 20 mg BID PO Last administered on 05/05/17 19:45; Start at 22:00 Buspirone HCl (Buspar) 5 mg [id number] PO Last administered on 04/28/17 13:22; Start 04/26/17 at 09:00; Stop 04/28/17 at 18:19; Status DC Olanzapine (ZyPREXA ZYDIS) 2.5 mg PRN Q2HR PRN PO PSYCHOSIS Last administered on 05/03/17 13:11; Start 04/25/17 at 20:45 Trazodone HCl (Desyrel) 25 mg PRN QHS PRN PO INSOMNIA Last administered on 04/29 19:23; Start 04/26/17 at 22:00; Stop 05/02/17 at 18:41; Status DC Donepezil HCl (Aricept) 5 mg QHS PO Last administered on 05/05/17 19:45; Start 04/27/17 at 21:00 Memantine (Namenda) 10 mg DAILY PO Last administered on 04/28/17 07:44; Start 04/28/17 at 09:00; Stop 04/29/17 at 00:00; Status DC Atorvastatin Calcium (Lipitor) 10 mg QHS PO Last administered on 05/05/17 19: 45; Start 04/27/17 at 21:00 Vitamin D (Vitamin D3) 1,000 unit DAILYBFRSUP PO Last administered on 18:02; Start 04/27/17 at 17:00 Ferrous Sulfate (Feosol) 325 mg DAILYWBKFT PO Last administered on 05/05/17 08 :45; Start 04/28/17 at 08:00 Vitamin D (Vitamin D3) 1,000 unit STK-MED ONCE .ROUTE ; Start 04/27/17 at 14:14 ; Stop 04/27/17 at 14:15; Status DC Buspirone HCl (Buspar) 5 mg [id number] PO Last administered on 05/01/17 13:25; Start 04/28/17 at 21:00; Stop 05/01/17 at 18:02; Status DC Quetiapine Fumarate (SEROquel) 25 mg [id number] PO Last administered on 04/30/17 12 :31; Start 04/29/17 at 09:00; Stop 04/30/17 at 19:37; Status DC Mirtazapine (Remeron) 7.5 mg QHS PO Last administered on 05/01/17 19:18; Start 04/30/17 at 21:00; Stop 05/02/17 at 18:41; Status DC Quetiapine Fumarate (SEROquel) 25 mg DAILY PO Last administered on 05/05/17 08 :45; Start 05/01/17 at 09:00 Buspirone HCl (Buspar) 5 mg [id number] PO Last administered on 05/05/17 19:45; Start 05/01/17 at 21:00 Mirtazapine (Remeron) 15 mg QHS PO Last administered on 05/05/17 19:45; Start 05/02/17 at 21:00 Trazodone HCl (Desyrel) 50 mg QHS PO Last administered on 05/05/17 19:45; Start 05/02/17 at 21:00 Trazodone HCl (Desyrel) 50 mg PRN 1X PRN PO INSOMNIA; Start 05/02/17 at 22:00 Melatonin 3 mg HS PO Last administered on 05/05/17 19:45; Start 05/02/17 at 21 :00 Divalproex Sodium (Depakote Sprinkles) 125 mg [id number] PO Last administered on 13:19; Start 05/04/17 at 09:00 Active Scripts Active Reported Trazodone Hcl 50 Mg Tablet 25 Mg PO PRN QHS PRN Trazodone Hcl 50 Mg Tablet 25 Mg PO QHS Seroquel (Quetiapine Fumarate) 25 Mg Tablet 12.5 Mg PO PRN Q6HRS PRN Seroquel (Quetiapine Fumarate) 25 Mg Tablet 25 Mg PO TID Claritin (Loratadine) 10 Mg Tablet 10 Mg PO PRN DAILY PRN Celexa (Citalopram Hydrobromide) 10 Mg Tablet 10 Mg PO DAILY Donepezil Hcl 10 Mg Tablet 10 Mg PO QHS Calcium 600 + Vit D 400 Tablet (Calcium Carbonate/Vitamin D3) 1 Each Tablet 1 Tab PO BIDACBL Ranitidine Hcl 150 Mg Tablet 150 Mg PO BID Aspirin Ec (Aspirin) 81 Mg Tablet.dr 81 Mg PO DAILY Multivitamins (Multivitamin) 1 Each Tablet 1 Tab PO BID Namenda Xr (Memantine Hcl) 28 Mg Cap.spr.24 28 Mg PO DAILY Diagnosis: Problems: (1) Anxiety disorder (2) Impulse control disorder (3) Dementia, vascular, with depression (4) Dementia, vascular, with delusions (5) Dementia in Alzheimer's disease with depression (6) Dementia in Alzheimer's disease with delusions COY CISNEROS MD May 05, 2017 20:07
--- NOTE | 2017-05-05 23:48 | PN ---
DATE: 05/04/2017 PSYCHIATRIC PROGRESS NOTE This is a late entry for 05/04/2017, covers elements not covered in my initial note. SUBJECTIVE: The patient was staffed at a treatment team meeting with the entire team the morning of 05/04/2017, seen individually the evening of 05/04/2017. The patient's daughter, Ashlee attended the treatment team meeting the morning of 05/04/2017. She has her 60th wedding anniversary on 05/04/2017 and family was going to bring in a cake. Appetite 100%, sleeping average 4 hours, previous night she slept 5-3/4 hours. She is disorganized, confused, wandering and intrusive. Slightly more redirectable. REVIEW OF SYSTEMS: No CV, , eye, ENT or pulmonary system symptoms on review. Reliability poor. MENTAL STATUS EXAM: Oriented to herself. Insight, judgment, recent and remote memory, attention, concentration, fund of knowledge poor, consistent with her diagnosis mentioned in my initial note. IMPRESSION: Major neurocognitive disorder, Alzheimer, vascular with depression, delusion, behavioral disturbance. Rest unchanged. PLAN: The patient's daughter, Ashlee had many questions on the patient's progress and medications and we went through each medication in turn discussing in detail side effects and dosages amongst other things. For now, we will stop the Seroquel. Maintain the rest of the psychotropics mentioned in my initial note. Adjust further as clinically indicated. Possible transition back to [facility] on 05/05/2017. COY CISNEROS MD DR: CEM/nicolle JOB#: [id number] / [id number]
[2017-05-06 06:04] VITALS: BP 154/81
[2017-05-06 07:17] LABS: ALBUMIN 3.2 g/dL (3.4-5.0); ALK PHOS 99 U/L (46-116); ALT (SGPT) 29 U/L (14-59); ANION GAP 6 (6-14); AST (SGOT) 31 U/L (15-37); BLOOD UREA NITROGEN 21 mg/dL (7-20); BUN/CREATININE RATIO 18 (6-20); CALCIUM 8.5 mg/dL (8.5-10.1); CARBON DIOXIDE 31 mmol/L (21-32); CHLORIDE 107 mmol/L (98-107); CREATININE 1.2 mg/dL (0.6-1.0); GFR 43.1; GLUCOSE 84 mg/dL (70-99); POTASSIUM 4.1 mmol/L (3.5-5.1); SODIUM 144 mmol/L (136-145); TOTAL BILIRUBIN 0.3 mg/dL (0.2-1.0); TOTAL PROTEIN 6.3 g/dL (6.4-8.2)
[2017-05-06 07:21] LABS: BASO # 0.1 x10^3/uL (0.0-0.2); BASO % 1 % (0-3); EOS # 0.4 x10^3/uL (0.0-0.7); EOS % 8 % (0-3); HEMATOCRIT 40.9 % (36.0-47.0); HEMOGLOBIN 13.4 g/dL (12.0-15.5); LYMPH # 1.4 x10^3/uL (1.0-4.8); LYMPH % 29 % (24-48); MEAN CORPUSCULAR HEMOGLOBIN 29 pg (25-35); MEAN CORPUSCULAR HGB CONC 33 g/dL (31-37); MEAN CORPUSCULAR VOLUME 89 fL (79-100); MONO # 0.5 x10^3/uL (0.0-1.1); MONO % 11 % (0-9); NEUT # 2.4 x10^3uL (1.8-7.7); NEUT % 51 % (31-73); PLATELET COUNT 261 x10^3/uL (140-400); RED CELL DISTRIBUTION WIDTH 13.7 % (11.5-14.5); WHITE BLOOD COUNT 4.7 x10^3/uL (4.0-11.0)
[2017-05-06 07:30] LABS: VAL ACID 20 mcg/mL (50-100)
[2017-05-06] MEDS: ASPIRIN ENTERIC COATED 81 MG TABLET.DR. PO SCH (09:04)
[2017-05-06] MEDS: busPIRone 5 MG TABLET. PO SCH ×4 (09:04→19:11)
[2017-05-06] MEDS: MULTIVITAMIN with MINERAL TABLET. PO SCH ×2 (09:04→19:11)
[2017-05-06] MEDS: QUEtiapine 25 MG TABLET. PO SCH (09:04)
[2017-05-06] MEDS: CALCIUM CARB/VIT D3 500/200 TABLET PO SCH ×2 (09:04→14:11)
[2017-05-06] MEDS: FERROUS SULFATE 325 MG TABLET PO SCH (09:04)
[2017-05-06] MEDS: DIVALPROEX 125 MG CAP.SPRINK PO SCH ×2 (09:04→14:11)
[2017-05-06] MEDS: FAMOTIDINE 20 MG TABLET PO SCH ×2 (09:06→19:11)
[2017-05-06] MEDS: CITALOPRAM 10 MG TABLET. PO SCH (09:14)
[2017-05-06 15:39] VITALS: BP 116/67
[2017-05-06] MEDS: CHOLECALCIFEROL (VITAMIN D3) 1,000 UNIT TABLET PO SCH (17:34)
[2017-05-06] MEDS: traZODone 50 MG TABLET. PO SCH (19:11)
[2017-05-06] MEDS: MIRTAZAPINE 15 MG TABLET PO SCH (19:11)
[2017-05-06] MEDS: ATORVASTATIN CALCIUM 10 MG TABLET. PO SCH (19:11)
[2017-05-06] MEDS: DONEPEZIL HCL 5 MG TABLET. PO SCH (19:11)
[2017-05-06] MEDS: MELATONIN 3 MG TABLET PO SCH (19:11)
--- NOTE | 2017-05-06 20:44 | PN ---
DATE: 05/05/2017 PSYCHIATRIC PROGRESS NOTE This is a late entry of 05/05/2017 covers elements not covered in my initial note. SUBJECTIVE: The patient slept 6-1/4 hours. She takes her medications whole per nursing report, confused, wandering and intrusive, but redirectable. REVIEW OF SYSTEMS: No CV, , eye, ENT or pulmonary system symptoms on review. MENTAL STATUS EXAM: Oriented to herself. Insight, judgment, recent and remote memory, attention, concentration, fund of knowledge poor, consistent with her diagnosis mentioned in my initial note. IMPRESSION: Unchanged from initial note. PLAN: Continue psychotropics mentioned in my initial note perhaps transition to shelter early next week. MAN Melvin CISNEROS MD DR: CEM/nicolle JOB#: [id number] / [id number]
--- NOTE | 2017-05-06 22:08 | PDOC ---
Exam Oneil Demential Exam: Oneil Note: Please also refer to the separate dictated note~for this date of service dictated separately.~Patient seen individually. Discussed the patient with Nursing staff reviewed the chart.~Reviewed interim history and current functioning. Reviewed vital signs,~Labs/ Radiology~and current medications noted below. Continue current treatment with the changes noted in the dictated addendum note Assessment: Vital Signs: Vital Signs Date Time Temp Pulse Resp B/P (MAP) Pulse Ox O2 Delivery O2 Flow Rate FiO2 05/06/17 15:39 98.3 72 20 116/67 (83) 96 05/05/17 16:38 Room Air I&O Intake and Output 05/06/17 07:00 Intake Total 600 ml Balance 600 ml Intake Oral 600 ml # Voids 1 # Bowel Movements 1 Labs: Laboratory Tests Test 05/06/17 06:51 White Blood Count 4.7 x10^3/uL (4.0-11.0) Red Blood Count 4.60 x10^6/uL (3.50-5.40) Hemoglobin 13.4 g/dL (12.0-15.5) Hematocrit 40.9 % (36.0-47.0) Mean Corpuscular Volume 89 fL (79-100) Mean Corpuscular Hemoglobin 29 pg (25-35) Mean Corpuscular Hemoglobin Concent 33 g/dL (31-37) Red Cell Distribution Width 13.7 % (11.5-14.5) Platelet Count 261 x10^3/uL (140-400) Neutrophils (%) (Auto) 51 % (31-73) Lymphocytes (%) (Auto) 29 % (24-48) Monocytes (%) (Auto) 11 % (0-9) H Eosinophils (%) (Auto) 8 % (0-3) H Basophils (%) (Auto) 1 % (0-3) Neutrophils # (Auto) 2.4 x10^3uL (1.8-7.7) Lymphocytes # (Auto) 1.4 x10^3/uL (1.0-4.8) Monocytes # (Auto) 0.5 x10^3/uL (0.0-1.1) Eosinophils # (Auto) 0.4 x10^3/uL (0.0-0.7) Basophils # (Auto) 0.1 x10^3/uL (0.0-0.2) Sodium Level 144 mmol/L (136-145) Potassium Level 4.1 mmol/L (3.5-5.1) Chloride Level 107 mmol/L (98-107) Carbon Dioxide Level 31 mmol/L (21-32) Anion Gap 6 (6-14) Blood Urea Nitrogen 21 mg/dL (7-20) H Creatinine 1.2 mg/dL (0.6-1.0) H Estimated GFR (Cockcroft-Gault) 43.1 BUN/Creatinine Ratio 18 (6-20) Glucose Level 84 mg/dL (70-99) Calcium Level 8.5 mg/dL (8.5-10.1) Magnesium Level 2.0 mg/dL (1.8-2.4) Total Bilirubin 0.3 mg/dL (0.2-1.0) Aspartate Amino Transferase (AST) 31 U/L (15-37) Alanine Aminotransferase (ALT) 29 U/L (14-59) Alkaline Phosphatase 99 U/L (46-116) Total Protein 6.3 g/dL (6.4-8.2) L Albumin 3.2 g/dL (3.4-5.0) L Albumin/Globulin Ratio 1.0 (1.0-1.7) Valproic Acid Level 20 mcg/mL (50-100) L Valproic Acid Last Dose Date 05/05/2017 Valproic Acid Last Dose Time 1400 Current Medications: Meds: Current Medications Acetaminophen (Tylenol) 650 mg PRN Q6HRS PRN PO PAIN / TEMP; Start 04/24/17 at 19:30 Multi-Ingredient Ointment (Analgesic [place]) 1 kalin PRN QID PRN TP MUSCLE PAIN; Start 04/24/17 at 19:30 Al Hydroxide/Mg Hydroxide (Mylanta Plus Xs) 15 ml PRN AFTMEALHC PRN PO DYSPEPSIA; Start 04/24/17 at 19:30 Magnesium Hydroxide (Milk Of Magnesia) 2,400 mg PRN QHS PRN PO CONSTIPATION; Start 04/24/17 at 19:30 Citalopram Hydrobromide (CeleXA) 10 mg DAILY PO Last administered on 05/06/17t 09:14; Start 04/25/17 at 09:00 Donepezil HCl (Aricept) 10 mg QHS PO Last administered on 04/26/17 19:55; Start 04/24/17 at 21:30; Stop 04/27/17 at 10:47; Status DC Quetiapine Fumarate (SEROquel) 12.5 mg PRN Q6HRS PRN PO PSYCHOSIS; Start at 21:00; Stop 04/30/17 at 19:37; Status DC Quetiapine Fumarate (SEROquel) 25 mg TID PO Last administered on 04/28/17 13: 26; Start 04/24/17 at 21:30; Stop 04/28/17 at 18:19; Status DC Trazodone HCl (Desyrel) 25 mg QHS PO Last administered on 05/02/17 00:04; Start 04/24/17 at 21:30; Stop 05/02/17 at 18:41; Status DC Memantine (Namenda) 10 mg BID PO Last administered on 04/27/17 07:46; Start at 09:00; Stop 04/27/17 at 10:47; Status DC Trazodone HCl (Desyrel) 25 mg QHS PO ; Start 04/25/17 at 21:00; Status UNV Aspirin (Aspirin Enteric Coated) 81 mg DAILY PO Last administered on 05/06/17 09:04; Start 04/25/17 at 09:00 Calcium/Vitamin D (Oscal D 500mg/ 200uts) 1 tab BIDACBL PO Last administered on 05/06/17 14:11; Start 04/25/17 at 07:30 Cetirizine HCl (ZyrTEC) 10 mg PRN DAILY PRN PO ALLERGIES; Start 04/25/17 at 09: 00 Multivitamins/ Calcium (Thera-M Plus) 1 tab BID PO Last administered on 19:11; Start 04/25/17 at 09:00 Famotidine (Pepcid) 20 mg BID PO Last administered on 05/06/17 19:11; Start at 22:00 Buspirone HCl (Buspar) 5 mg [id number] PO Last administered on 04/28/17 13:22; Start 04/26/17 at 09:00; Stop 04/28/17 at 18:19; Status DC Olanzapine (ZyPREXA ZYDIS) 2.5 mg PRN Q2HR PRN PO PSYCHOSIS Last administered on 05/03/17 13:11; Start 04/25/17 at 20:45 Trazodone HCl (Desyrel) 25 mg PRN QHS PRN PO INSOMNIA Last administered on 04/29 19:23; Start 04/26/17 at 22:00; Stop 05/02/17 at 18:41; Status DC Donepezil HCl (Aricept) 5 mg QHS PO Last administered on 05/06/17 19:11; Start 04/27/17 at 21:00 Memantine (Namenda) 10 mg DAILY PO Last administered on 04/28/17 07:44; Start 04/28/17 at 09:00; Stop 04/29/17 at 00:00; Status DC Atorvastatin Calcium (Lipitor) 10 mg QHS PO Last administered on 05/06/17 19: 11; Start 04/27/17 at 21:00 Vitamin D (Vitamin D3) 1,000 unit DAILYBFRSUP PO Last administered on 17:34; Start 04/27/17 at 17:00 Ferrous Sulfate (Feosol) 325 mg DAILYWBKFT PO Last administered on 05/06/17 09 :04; Start 04/28/17 at 08:00 Vitamin D (Vitamin D3) 1,000 unit STK-MED ONCE .ROUTE ; Start 04/27/17 at 14:14 ; Stop 04/27/17 at 14:15; Status DC Buspirone HCl (Buspar) 5 mg [id number] PO Last administered on 05/01/17 13:25; Start 04/28/17 at 21:00; Stop 05/01/17 at 18:02; Status DC Quetiapine Fumarate (SEROquel) 25 mg [id number] PO Last administered on 04/30/17 12 :31; Start 04/29/17 at 09:00; Stop 04/30/17 at 19:37; Status DC Mirtazapine (Remeron) 7.5 mg QHS PO Last administered on 05/01/17 19:18; Start 04/30/17 at 21:00; Stop 05/02/17 at 18:41; Status DC Quetiapine Fumarate (SEROquel) 25 mg DAILY PO Last administered on 05/06/17 09 :04; Start 05/01/17 at 09:00 Buspirone HCl (Buspar) 5 mg [id number] PO Last administered on 05/06/17 19:11; Start 05/01/17 at 21:00 Mirtazapine (Remeron) 15 mg QHS PO Last administered on 05/06/17 19:11; Start 05/02/17 at 21:00 Trazodone HCl (Desyrel) 50 mg QHS PO Last administered on 05/06/17 19:11; Start 05/02/17 at 21:00 Trazodone HCl (Desyrel) 50 mg PRN 1X PRN PO INSOMNIA; Start 05/02/17 at 22:00 Melatonin 3 mg HS PO Last administered on 05/06/17 19:11; Start 05/02/17 at 21 :00 Divalproex Sodium (Depakote Sprinkles) 125 mg [id number] PO Last administered on 14:11; Start 05/04/17 at 09:00 Active Scripts Active Reported Trazodone Hcl 50 Mg Tablet 25 Mg PO PRN QHS PRN Trazodone Hcl 50 Mg Tablet 25 Mg PO QHS Seroquel (Quetiapine Fumarate) 25 Mg Tablet 12.5 Mg PO PRN Q6HRS PRN Seroquel (Quetiapine Fumarate) 25 Mg Tablet 25 Mg PO TID Claritin (Loratadine) 10 Mg Tablet 10 Mg PO PRN DAILY PRN Celexa (Citalopram Hydrobromide) 10 Mg Tablet 10 Mg PO DAILY Donepezil Hcl 10 Mg Tablet 10 Mg PO QHS Calcium 600 + Vit D 400 Tablet (Calcium Carbonate/Vitamin D3) 1 Each Tablet 1 Tab PO BIDACBL Ranitidine Hcl 150 Mg Tablet 150 Mg PO BID Aspirin Ec (Aspirin) 81 Mg Tablet.dr 81 Mg PO DAILY Multivitamins (Multivitamin) 1 Each Tablet 1 Tab PO BID Namenda Xr (Memantine Hcl) 28 Mg Cap.spr.24 28 Mg PO DAILY Diagnosis: Problems: (1) Anxiety disorder (2) Impulse control disorder (3) Dementia, vascular, with depression (4) Dementia, vascular, with delusions (5) Dementia in Alzheimer's disease with depression (6) Dementia in Alzheimer's disease with delusions COY CISNEROS MD May 06, 2017 22:08
--- NOTE | 2017-05-06 23:40 | PN ---
DATE: 05/06/2017 PSYCHIATRIC PROGRESS NOTE This note covers elements not covered in my initial note of 05/06/2017. SUBJECTIVE: The patient slept 7 hours last night. Overall, per nursing report, she is doing better, not going into other patient's rooms as much and does get over involved in trying to help other patients. Compliant with her medications quite confused. No CV, , pulmonary, eye, ENT system symptoms on review. Reliability poor. MENTAL STATUS EXAM: Oriented to herself. Insight, judgment, recent and remote memory, attention, concentration, fund of knowledge poor, consistent with her diagnosis mentioned in my initial note. IMPRESSION: Major neurocognitive disorder, Alzheimer, vascular with depression, delusion and behavioral disturbance. Rest diagnoses unchanged. PLAN: Continue psychotropics mentioned in my initial note. Possible transition to a lower level of care early next week. MAN Melvin CISNEROS MD DR: CEM/nicolle JOB#: [id number] / [id number]
[2017-05-07 06:02] VITALS: BP 132/84
[2017-05-07] MEDS: DIVALPROEX 125 MG CAP.SPRINK PO SCH ×2 (07:54→14:47)
[2017-05-07] MEDS: CITALOPRAM 10 MG TABLET. PO SCH (07:55)
[2017-05-07] MEDS: QUEtiapine 25 MG TABLET. PO SCH (07:55)
[2017-05-07] MEDS: FAMOTIDINE 20 MG TABLET PO SCH ×2 (07:55→19:18)
[2017-05-07] MEDS: MULTIVITAMIN with MINERAL TABLET. PO SCH ×2 (07:55→19:17)
[2017-05-07] MEDS: ASPIRIN ENTERIC COATED 81 MG TABLET.DR. PO SCH (07:55)
[2017-05-07] MEDS: busPIRone 5 MG TABLET. PO SCH ×4 (07:55→19:18)
[2017-05-07] MEDS: FERROUS SULFATE 325 MG TABLET PO SCH (07:55)
[2017-05-07] MEDS: CALCIUM CARB/VIT D3 500/200 TABLET PO SCH ×2 (07:55→12:22)
[2017-05-07] MEDS: CHOLECALCIFEROL (VITAMIN D3) 1,000 UNIT TABLET PO SCH (07:56)
[2017-05-07 15:52] VITALS: BP 126/82
[2017-05-07] MEDS: DONEPEZIL HCL 5 MG TABLET. PO SCH (19:17)
[2017-05-07] MEDS: ATORVASTATIN CALCIUM 10 MG TABLET. PO SCH (19:18)
[2017-05-07] MEDS: traZODone 50 MG TABLET. PO SCH (19:18)
[2017-05-07] MEDS: MELATONIN 3 MG TABLET PO SCH (19:18)
[2017-05-07] MEDS: MIRTAZAPINE 15 MG TABLET PO SCH (19:18)
--- NOTE | 2017-05-07 21:17 | PDOC ---
Exam Oneil Demential Exam: Oneil Note: Please also refer to the separate dictated note~for this date of service dictated separately.~Patient seen individually. Discussed the patient with Nursing staff reviewed the chart.~Reviewed interim history and current functioning. Reviewed vital signs,~Labs/ Radiology~and current medications noted below. Continue current treatment with the changes noted in the dictated addendum note Assessment: Vital Signs: Vital Signs Date Time Temp Pulse Resp B/P (MAP) Pulse Ox O2 Delivery O2 Flow Rate FiO2 05/07/17 15:52 98.3 68 18 126/82 (97) 97 05/05/17 16:38 Room Air I&O Intake and Output 05/07/17 07:00 Intake Total 840 ml Balance 840 ml Intake Oral 840 ml Current Medications: Meds: Current Medications Acetaminophen (Tylenol) 650 mg PRN Q6HRS PRN PO PAIN / TEMP; Start 04/24/17 at 19:30 Multi-Ingredient Ointment (Analgesic [place]) 1 kalin PRN QID PRN TP MUSCLE PAIN; Start 04/24/17 at 19:30 Al Hydroxide/Mg Hydroxide (Mylanta Plus Xs) 15 ml PRN AFTMEALHC PRN PO DYSPEPSIA; Start 04/24/17 at 19:30 Magnesium Hydroxide (Milk Of Magnesia) 2,400 mg PRN QHS PRN PO CONSTIPATION; Start 04/24/17 at 19:30 Citalopram Hydrobromide (CeleXA) 10 mg DAILY PO Last administered on 05/07/17 07:55; Start 04/25/17 at 09:00 Donepezil HCl (Aricept) 10 mg QHS PO Last administered on 04/26/17 19:55; Start 04/24/17 at 21:30; Stop 04/27/17 at 10:47; Status DC Quetiapine Fumarate (SEROquel) 12.5 mg PRN Q6HRS PRN PO PSYCHOSIS; Start at 21:00; Stop 04/30/17 at 19:37; Status DC Quetiapine Fumarate (SEROquel) 25 mg TID PO Last administered on 04/28/17 13: 26; Start 04/24/17 at 21:30; Stop 04/28/17 at 18:19; Status DC Trazodone HCl (Desyrel) 25 mg QHS PO Last administered on 05/02/17 00:04; Start 04/24/17 at 21:30; Stop 05/02/17 at 18:41; Status DC Memantine (Namenda) 10 mg BID PO Last administered on 04/27/17 07:46; Start at 09:00; Stop 04/27/17 at 10:47; Status DC Trazodone HCl (Desyrel) 25 mg QHS PO ; Start 04/25/17 at 21:00; Status UNV Aspirin (Aspirin Enteric Coated) 81 mg DAILY PO Last administered on 05/07/17 07:55; Start 04/25/17 at 09:00 Calcium/Vitamin D (Oscal D 500mg/ 200uts) 1 tab BIDACBL PO Last administered on 05/07/17 12:22; Start 04/25/17 at 07:30 Cetirizine HCl (ZyrTEC) 10 mg PRN DAILY PRN PO ALLERGIES; Start 04/25/17 at 09: 00 Multivitamins/ Calcium (Thera-M Plus) 1 tab BID PO Last administered on 19:17; Start 04/25/17 at 09:00 Famotidine (Pepcid) 20 mg BID PO Last administered on 05/07/17 19:18; Start at 22:00 Buspirone HCl (Buspar) 5 mg [id number] PO Last administered on 04/28/17 13:22; Start 04/26/17 at 09:00; Stop 04/28/17 at 18:19; Status DC Olanzapine (ZyPREXA ZYDIS) 2.5 mg PRN Q2HR PRN PO PSYCHOSIS Last administered on 05/03/17 13:11; Start 04/25/17 at 20:45 Trazodone HCl (Desyrel) 25 mg PRN QHS PRN PO INSOMNIA Last administered on 04/29 19:23; Start 04/26/17 at 22:00; Stop 05/02/17 at 18:41; Status DC Donepezil HCl (Aricept) 5 mg QHS PO Last administered on 05/07/17 19:17; Start 04/27/17 at 21:00 Memantine (Namenda) 10 mg DAILY PO Last administered on 04/28/17 07:44; Start 04/28/17 at 09:00; Stop 04/29/17 at 00:00; Status DC Atorvastatin Calcium (Lipitor) 10 mg QHS PO Last administered on 05/07/17 19: 18; Start 04/27/17 at 21:00 Vitamin D (Vitamin D3) 1,000 unit DAILYBFRSUP PO Last administered on 07:56; Start 04/27/17 at 17:00 Ferrous Sulfate (Feosol) 325 mg [id number] PO Last administered on 05/07/17 07 :55; Start 04/28/17 at 08:00 Vitamin D (Vitamin D3) 1,000 unit STK-MED ONCE .ROUTE ; Start 04/27/17 at 14:14 ; Stop 04/27/17 at 14:15; Status DC Buspirone HCl (Buspar) 5 mg [id number] PO Last administered on 05/01/17 13:25; Start 04/28/17 at 21:00; Stop 05/01/17 at 18:02; Status DC Quetiapine Fumarate (SEROquel) 25 mg [id number] PO Last administered on 04/30/17 12 :31; Start 04/29/17 at 09:00; Stop 04/30/17 at 19:37; Status DC Mirtazapine (Remeron) 7.5 mg QHS PO Last administered on 05/01/17 19:18; Start 04/30/17 at 21:00; Stop 05/02/17 at 18:41; Status DC Quetiapine Fumarate (SEROquel) 25 mg DAILY PO Last administered on 05/07/17 07 :55; Start 05/01/17 at 09:00 Buspirone HCl (Buspar) 5 mg [id number] PO Last administered on 05/07/17 19:18; Start 05/01/17 at 21:00 Mirtazapine (Remeron) 15 mg QHS PO Last administered on 05/07/17 19:18; Start 05/02/17 at 21:00 Trazodone HCl (Desyrel) 50 mg QHS PO Last administered on 05/07/17 19:18; Start 05/02/17 at 21:00 Trazodone HCl (Desyrel) 50 mg PRN 1X PRN PO INSOMNIA; Start 05/02/17 at 22:00 Melatonin 3 mg HS PO Last administered on 05/07/17 19:18; Start 05/02/17 at 21 :00 Divalproex Sodium (Depakote Sprinkles) 125 mg [id number] PO Last administered on 14:47; Start 05/04/17 at 09:00 Active Scripts Active Reported Trazodone Hcl 50 Mg Tablet 25 Mg PO PRN QHS PRN Trazodone Hcl 50 Mg Tablet 25 Mg PO QHS Seroquel (Quetiapine Fumarate) 25 Mg Tablet 12.5 Mg PO PRN Q6HRS PRN Seroquel (Quetiapine Fumarate) 25 Mg Tablet 25 Mg PO TID Claritin (Loratadine) 10 Mg Tablet 10 Mg PO PRN DAILY PRN Celexa (Citalopram Hydrobromide) 10 Mg Tablet 10 Mg PO DAILY Donepezil Hcl 10 Mg Tablet 10 Mg PO QHS Calcium 600 + Vit D 400 Tablet (Calcium Carbonate/Vitamin D3) 1 Each Tablet 1 Tab PO BIDACBL Ranitidine Hcl 150 Mg Tablet 150 Mg PO BID Aspirin Ec (Aspirin) 81 Mg Tablet.dr 81 Mg PO DAILY Multivitamins (Multivitamin) 1 Each Tablet 1 Tab PO BID Namenda Xr (Memantine Hcl) 28 Mg Cap.spr.24 28 Mg PO DAILY Diagnosis: Problems: (1) Anxiety disorder (2) Impulse control disorder (3) Dementia, vascular, with depression (4) Dementia, vascular, with delusions (5) Dementia in Alzheimer's disease with depression (6) Dementia in Alzheimer's disease with delusions COY CISNEROS MD May 07, 2017 21:17
[2017-05-08 05:51] VITALS: BP 132/77
[2017-05-08] MEDS: busPIRone 5 MG TABLET. PO SCH ×4 (08:54→20:01)
[2017-05-08] MEDS: DIVALPROEX 125 MG CAP.SPRINK PO SCH ×3 (08:54→20:02)
[2017-05-08] MEDS: CITALOPRAM 10 MG TABLET. PO SCH (08:54)
[2017-05-08] MEDS: QUEtiapine 25 MG TABLET. PO SCH (08:54)
[2017-05-08] MEDS: CALCIUM CARB/VIT D3 500/200 TABLET PO SCH ×2 (08:54→12:47)
[2017-05-08] MEDS: ASPIRIN ENTERIC COATED 81 MG TABLET.DR. PO SCH (08:54)
[2017-05-08] MEDS: FAMOTIDINE 20 MG TABLET PO SCH ×2 (08:54→20:01)
[2017-05-08] MEDS: MULTIVITAMIN with MINERAL TABLET. PO SCH ×2 (08:54→20:01)
[2017-05-08] MEDS: CHOLECALCIFEROL (VITAMIN D3) 1,000 UNIT TABLET PO SCH (08:55)
[2017-05-08] MEDS: FERROUS SULFATE 325 MG TABLET PO SCH (08:55)
--- NOTE | 2017-05-08 09:51 | PN ---
DATE: 05/07/2017 SUBJECTIVE: This note covers elements not covered in my other notes from today. The patient was seen individually, discussed with nursing staff, and reviewed the chart. Remains confused, argumentative, and combative with change of clothes. Previously, she was washing clothes herself in the bathroom hanging them to dry. She is confused and wandering. REVIEW OF SYSTEMS: No CV, , pulmonary, eye, or ENT system symptoms on review. Reliability poor. MENTAL STATUS EXAM: Oriented to herself. Insight, judgment, recent and remote memory, attention, concentration, fund of knowledge poor consistent with her diagnosis. As I met with her and walked with her up and down the hallway. She was oblivious of her surroundings walking right away and quite disconnected. LABORATORY DATA: Reviewed. IMPRESSION: Major neurocognitive disorder, Alzheimer, vascular with depression, delusion, and behavioral disturbance. PLAN: The patient has not been aggressive. We will continue current psychotropics mentioned in my other note. Risks and benefit ratio drug interactions indicates current psychotropics should be continued. Perhaps, may need adjustment depending on her progress. MAN Melvin CISNEROS MD DR: CEM/nicolle JOB#: [id number] / [id number]
[2017-05-08 16:35] VITALS: BP 116/70
[2017-05-08] MEDS: ATORVASTATIN CALCIUM 10 MG TABLET. PO SCH (20:00)
[2017-05-08] MEDS: traZODone 50 MG TABLET. PO SCH (20:01)
[2017-05-08] MEDS: DONEPEZIL HCL 5 MG TABLET. PO SCH (20:01)
[2017-05-08] MEDS: MIRTAZAPINE 15 MG TABLET PO SCH (20:01)
[2017-05-08] MEDS: MELATONIN 3 MG TABLET PO SCH (20:01)
--- NOTE | 2017-05-08 20:20 | PDOC ---
Exam Oneil Demential Exam: Oneil Note: Please also refer to the separate dictated note~for this date of service dictated separately.~Patient seen individually. Discussed the patient with Nursing staff reviewed the chart.~Reviewed interim history and current functioning. Reviewed vital signs,~Labs/ Radiology~and current medications noted below. Continue current treatment with the changes noted in the dictated addendum note Assessment: Vital Signs: Vital Signs Date Time Temp Pulse Resp B/P (MAP) Pulse Ox O2 Delivery O2 Flow Rate FiO2 05/08/17 16:35 97.6 83 20 116/70 (85) 97 05/05/17 16:38 Room Air I&O Intake and Output 05/08/17 07:00 Intake Total 780 ml Balance 780 ml Intake Oral 780 ml # Bowel Movements 1 Current Medications: Meds: Current Medications Acetaminophen (Tylenol) 650 mg PRN Q6HRS PRN PO PAIN / TEMP; Start 04/24/17 at 19:30 Multi-Ingredient Ointment (Analgesic [place]) 1 kalin PRN QID PRN TP MUSCLE PAIN; Start 04/24/17 at 19:30 Al Hydroxide/Mg Hydroxide (Mylanta Plus Xs) 15 ml PRN AFTMEALHC PRN PO DYSPEPSIA; Start 04/24/17 at 19:30 Magnesium Hydroxide (Milk Of Magnesia) 2,400 mg PRN QHS PRN PO CONSTIPATION; Start 04/24/17 at 19:30 Citalopram Hydrobromide (CeleXA) 10 mg DAILY PO Last administered on 05/08/17 08:54; Start 04/25/17 at 09:00 Donepezil HCl (Aricept) 10 mg QHS PO Last administered on 04/26/17 19:55; Start 04/24/17 at 21:30; Stop 04/27/17 at 10:47; Status DC Quetiapine Fumarate (SEROquel) 12.5 mg PRN Q6HRS PRN PO PSYCHOSIS; Start at 21:00; Stop 04/30/17 at 19:37; Status DC Quetiapine Fumarate (SEROquel) 25 mg TID PO Last administered on 04/28/17 13: 26; Start 04/24/17 at 21:30; Stop 04/28/17 at 18:19; Status DC Trazodone HCl (Desyrel) 25 mg QHS PO Last administered on 05/02/17 00:04; Start 04/24/17 at 21:30; Stop 05/02/17 at 18:41; Status DC Memantine (Namenda) 10 mg BID PO Last administered on 04/27/17 07:46; Start at 09:00; Stop 04/27/17 at 10:47; Status DC Trazodone HCl (Desyrel) 25 mg QHS PO ; Start 04/25/17 at 21:00; Status UNV Aspirin (Aspirin Enteric Coated) 81 mg DAILY PO Last administered on 05/08/17 08:54; Start 04/25/17 at 09:00 Calcium/Vitamin D (Oscal D 500mg/ 200uts) 1 tab BIDACBL PO Last administered on 05/08/17 12:47; Start 04/25/17 at 07:30 Cetirizine HCl (ZyrTEC) 10 mg PRN DAILY PRN PO ALLERGIES; Start 04/25/17 at 09: 00 Multivitamins/ Calcium (Thera-M Plus) 1 tab BID PO Last administered on 20:01; Start 04/25/17 at 09:00 Famotidine (Pepcid) 20 mg BID PO Last administered on 05/08/17 20:01; Start at 22:00 Buspirone HCl (Buspar) 5 mg [id number] PO Last administered on 04/28/17 13:22; Start 04/26/17 at 09:00; Stop 04/28/17 at 18:19; Status DC Olanzapine (ZyPREXA ZYDIS) 2.5 mg PRN Q2HR PRN PO PSYCHOSIS Last administered on 05/08/17 14:32; Start 04/25/17 at 20:45 Trazodone HCl (Desyrel) 25 mg PRN QHS PRN PO INSOMNIA Last administered on 04/29 19:23; Start 04/26/17 at 22:00; Stop 05/02/17 at 18:41; Status DC Donepezil HCl (Aricept) 5 mg QHS PO Last administered on 05/08/17 20:01; Start 04/27/17 at 21:00 Memantine (Namenda) 10 mg DAILY PO Last administered on 04/28/17 07:44; Start 04/28/17 at 09:00; Stop 04/29/17 at 00:00; Status DC Atorvastatin Calcium (Lipitor) 10 mg QHS PO Last administered on 05/08/17 20: 00; Start 04/27/17 at 21:00 Vitamin D (Vitamin D3) 1,000 unit DAILYBFRSUP PO Last administered on 08:55; Start 04/27/17 at 17:00 Ferrous Sulfate (Feosol) 325 mg [id number] PO Last administered on 05/08/17 08 :55; Start 04/28/17 at 08:00 Vitamin D (Vitamin D3) 1,000 unit STK-MED ONCE .ROUTE ; Start 04/27/17 at 14:14 ; Stop 04/27/17 at 14:15; Status DC Buspirone HCl (Buspar) 5 mg [id number] PO Last administered on 05/01/17 13:25; Start 04/28/17 at 21:00; Stop 05/01/17 at 18:02; Status DC Quetiapine Fumarate (SEROquel) 25 mg [id number] PO Last administered on 04/30/17 12 :31; Start 04/29/17 at 09:00; Stop 04/30/17 at 19:37; Status DC Mirtazapine (Remeron) 7.5 mg QHS PO Last administered on 05/01/17 19:18; Start 04/30/17 at 21:00; Stop 05/02/17 at 18:41; Status DC Quetiapine Fumarate (SEROquel) 25 mg DAILY PO Last administered on 05/08/17 08 :54; Start 05/01/17 at 09:00 Buspirone HCl (Buspar) 5 mg [id number] PO Last administered on 05/08/17 20:01; Start 05/01/17 at 21:00 Mirtazapine (Remeron) 15 mg QHS PO Last administered on 05/08/17 20:01; Start 05/02/17 at 21:00 Trazodone HCl (Desyrel) 50 mg QHS PO Last administered on 05/08/17 20:01; Start 05/02/17 at 21:00 Trazodone HCl (Desyrel) 50 mg PRN 1X PRN PO INSOMNIA; Start 05/02/17 at 22:00 Melatonin 3 mg HS PO Last administered on 05/08/17 20:01; Start 05/02/17 at 21 :00 Divalproex Sodium (Depakote Sprinkles) 125 mg [id number] PO Last administered on 14:00; Start 05/04/17 at 09:00; Stop 05/08/17 at 15:51; Status DC Divalproex Sodium (Depakote Sprinkles) 125 mg DAILY PO ; Start 05/09/17 at 09:00 Divalproex Sodium (Depakote Sprinkles) 250 mg HS PO Last administered on 20:02; Start 05/08/17 at 21:00 Active Scripts Active Reported Trazodone Hcl 50 Mg Tablet 25 Mg PO PRN QHS PRN Trazodone Hcl 50 Mg Tablet 25 Mg PO QHS Seroquel (Quetiapine Fumarate) 25 Mg Tablet 12.5 Mg PO PRN Q6HRS PRN Seroquel (Quetiapine Fumarate) 25 Mg Tablet 25 Mg PO TID Claritin (Loratadine) 10 Mg Tablet 10 Mg PO PRN DAILY PRN Celexa (Citalopram Hydrobromide) 10 Mg Tablet 10 Mg PO DAILY Donepezil Hcl 10 Mg Tablet 10 Mg PO QHS Calcium 600 + Vit D 400 Tablet (Calcium Carbonate/Vitamin D3) 1 Each Tablet 1 Tab PO BIDACBL Ranitidine Hcl 150 Mg Tablet 150 Mg PO BID Aspirin Ec (Aspirin) 81 Mg Tablet.dr 81 Mg PO DAILY Multivitamins (Multivitamin) 1 Each Tablet 1 Tab PO BID Namenda Xr (Memantine Hcl) 28 Mg Cap.spr.24 28 Mg PO DAILY Diagnosis: Problems: (1) Anxiety disorder (2) Impulse control disorder (3) Dementia, vascular, with depression (4) Dementia, vascular, with delusions (5) Dementia in Alzheimer's disease with depression (6) Dementia in Alzheimer's disease with delusions COY CISNEROS MD May 08, 2017 20:20
--- NOTE | 2017-05-09 04:01 | PN ---
DATE: 05/08/2017 SUBJECTIVE: The patient was seen today, with the staff and the chart reviewed and also covering for Dr. Saha. The patient continues to have behavior problems. She is restless, increased agitation, wandering intrusive, demanding. The patient constantly touching people, not able to follow directions. OBSERVATION: VITAL SIGNS: Temperature 98.4, blood pressure 122/77, pulse 61, respirations 22, O2 sat 95%. She slept about 6 hours last night. Staff reports any falls. MEDICATIONS: Reviewed. The patient is not having any major side effects. CURRENT MEDICATIONS: Include Depakote 125 mg b.i.d., trazodone 50 mg at night p.r.n., melatonin 3 mg at night, mirtazapine 15 mg at night, BuSpar 5 mg q.i.d., Seroquel 25 mg daily, Aricept 5 mg at night, olanzapine 2.5 mg every 2 hours p.r.n. and citalopram 10 mg daily. The patient's lab reviewed. patient's BUN was 21 otherwise no other major abnormalities. ASSESSMENT: Major neurocognitive disorder, Alzheimer's, vascular, depression, delusions and behavioral disturbances. PLAN: Continue all the medications except increasing the Depakote to 125 mg in the morning and 250 at night. Staff also reports she had at least 2 p.r.n. medications in the past 24 hours. NATALYA NÚÑEZ MD DR: DENNY/nicolle JOB#: [id number] / [id number]
[2017-05-09 06:14] VITALS: BP 123/67
[2017-05-09] MEDS: FERROUS SULFATE 325 MG TABLET PO SCH (07:54)
[2017-05-09] MEDS: CALCIUM CARB/VIT D3 500/200 TABLET PO SCH ×2 (07:54→12:13)
[2017-05-09] MEDS: DIVALPROEX 125 MG CAP.SPRINK PO SCH ×2 (08:39→20:59)
[2017-05-09] MEDS: QUEtiapine 25 MG TABLET. PO SCH (08:39)
[2017-05-09] MEDS: ASPIRIN ENTERIC COATED 81 MG TABLET.DR. PO SCH (08:39)
[2017-05-09] MEDS: CITALOPRAM 10 MG TABLET. PO SCH (08:39)
[2017-05-09] MEDS: MULTIVITAMIN with MINERAL TABLET. PO SCH ×2 (08:39→20:59)
[2017-05-09] MEDS: busPIRone 5 MG TABLET. PO SCH ×4 (08:39→20:59)
[2017-05-09] MEDS: FAMOTIDINE 20 MG TABLET PO SCH ×2 (08:39→20:59)
[2017-05-09 15:52] VITALS: BP 155/83
[2017-05-09] MEDS: CHOLECALCIFEROL (VITAMIN D3) 1,000 UNIT TABLET PO SCH (17:03)
[2017-05-09] MEDS: DONEPEZIL HCL 5 MG TABLET. PO SCH (20:59)
[2017-05-09] MEDS: traZODone 50 MG TABLET. PO SCH (20:59)
[2017-05-09] MEDS: MELATONIN 3 MG TABLET PO SCH (20:59)
[2017-05-09] MEDS: ATORVASTATIN CALCIUM 10 MG TABLET. PO SCH (20:59)
[2017-05-09] MEDS: MIRTAZAPINE 15 MG TABLET PO SCH (20:59)
[2017-05-10 06:26] VITALS: BP 111/75
[2017-05-10] MEDS: CITALOPRAM 10 MG TABLET. PO SCH (10:48)
[2017-05-10] MEDS: FERROUS SULFATE 325 MG TABLET PO SCH (10:48)
[2017-05-10] MEDS: CALCIUM CARB/VIT D3 500/200 TABLET PO SCH ×2 (10:48→11:30)
[2017-05-10] MEDS: FAMOTIDINE 20 MG TABLET PO SCH ×2 (10:48→19:56)
[2017-05-10] MEDS: MULTIVITAMIN with MINERAL TABLET. PO SCH ×2 (10:48→19:56)
[2017-05-10] MEDS: QUEtiapine 25 MG TABLET. PO SCH (10:48)
[2017-05-10] MEDS: DIVALPROEX 125 MG CAP.SPRINK PO SCH ×2 (10:48→19:56)
[2017-05-10] MEDS: busPIRone 5 MG TABLET. PO SCH ×2 (10:48→13:12)
[2017-05-10] MEDS: ASPIRIN ENTERIC COATED 81 MG TABLET.DR. PO SCH (10:48)
[2017-05-10 15:46] VITALS: BP 132/79
[2017-05-10] MEDS: traZODone 50 MG TABLET. PO SCH (19:56)
[2017-05-10] MEDS: MELATONIN 3 MG TABLET PO SCH (19:56)
[2017-05-10] MEDS: MIRTAZAPINE 15 MG TABLET PO SCH (19:56)
[2017-05-10] MEDS: ATORVASTATIN CALCIUM 10 MG TABLET. PO SCH (19:56)
[2017-05-10] MEDS: DONEPEZIL HCL 5 MG TABLET. PO SCH (19:56)
[2017-05-11 06:22] VITALS: BP 146/78
[2017-05-11 06:58] LABS: BASO % 0 % (0-3); EOS # 0.4 x10^3/uL (0.0-0.7); EOS % 7 % (0-3); HEMATOCRIT 42.4 % (36.0-47.0); HEMOGLOBIN 13.9 g/dL (12.0-15.5); LYMPH # 1.6 x10^3/uL (1.0-4.8); LYMPH % 26 % (24-48); MEAN CORPUSCULAR HEMOGLOBIN 29 pg (25-35); MEAN CORPUSCULAR HGB CONC 33 g/dL (31-37); MEAN CORPUSCULAR VOLUME 89 fL (79-100); MONO # 0.8 x10^3/uL (0.0-1.1); MONO % 13 % (0-9); NEUT # 3.2 x10^3uL (1.8-7.7); NEUT % 54 % (31-73); PLATELET COUNT 260 x10^3/uL (140-400); RED BLOOD COUNT 4.75 x10^6/uL (3.50-5.40); RED CELL DISTRIBUTION WIDTH 13.8 % (11.5-14.5); WHITE BLOOD COUNT 5.9 x10^3/uL (4.0-11.0)
[2017-05-11 07:13] LABS: ALBUMIN 3.4 g/dL (3.4-5.0); ALBUMIN/GLOBULIN RATIO 0.9 (1.0-1.7); ALK PHOS 91 U/L (46-116); ALT (SGPT) 34 U/L (14-59); ANION GAP 8 (6-14); AST (SGOT) 39 U/L (15-37); BLOOD UREA NITROGEN 25 mg/dL (7-20); BUN/CREATININE RATIO 23 (6-20); CALCIUM 8.6 mg/dL (8.5-10.1); CARBON DIOXIDE 29 mmol/L (21-32); CHLORIDE 107 mmol/L (98-107); CREATININE 1.1 mg/dL (0.6-1.0); GFR 47.7; GLUCOSE 89 mg/dL (70-99); MAGNESIUM 2.4 mg/dL (1.8-2.4); POTASSIUM 4.1 mmol/L (3.5-5.1); SODIUM 144 mmol/L (136-145); TOTAL BILIRUBIN 0.4 mg/dL (0.2-1.0)
[2017-05-11 07:22] LABS: VAL ACID 48 mcg/mL (50-100)
[2017-05-11] MEDS: FAMOTIDINE 20 MG TABLET PO SCH ×2 (08:57→19:25)
[2017-05-11] MEDS: ASPIRIN ENTERIC COATED 81 MG TABLET.DR. PO SCH (08:58)
[2017-05-11] MEDS: MULTIVITAMIN with MINERAL TABLET. PO SCH ×2 (08:58→19:25)
[2017-05-11] MEDS: FERROUS SULFATE 325 MG TABLET PO SCH (08:58)
[2017-05-11] MEDS: CALCIUM CARB/VIT D3 500/200 TABLET PO SCH ×3 (08:58→19:26)
[2017-05-11] MEDS: CITALOPRAM 10 MG TABLET. PO SCH (08:58)
[2017-05-11] MEDS: DIVALPROEX 125 MG CAP.SPRINK PO SCH ×2 (09:00→19:25)
[2017-05-11] MEDS: busPIRone 5 MG TABLET. PO SCH ×4 (09:01→19:25)
[2017-05-11 15:26] VITALS: BP 100/67
[2017-05-11] MEDS: CHOLECALCIFEROL (VITAMIN D3) 1,000 UNIT TABLET PO SCH (16:40)
[2017-05-11] MEDS: MELATONIN 3 MG TABLET PO SCH (19:24)
[2017-05-11] MEDS: DONEPEZIL HCL 5 MG TABLET. PO SCH (19:24)
[2017-05-11] MEDS: traZODone 50 MG TABLET. PO SCH (19:25)
[2017-05-11] MEDS: MIRTAZAPINE 15 MG TABLET PO SCH (19:25)
[2017-05-11] MEDS: ATORVASTATIN CALCIUM 10 MG TABLET. PO SCH (19:25)
[2017-05-12] MEDS ORDERED: ACET500T68 PO (00:54)
[2017-05-12] MEDS ORDERED: CHOL10003 PO ×2 (00:56→01:09)
[2017-05-12] MEDS ORDERED: DIVA125C PO ×3 (00:58→01:11)
[2017-05-12] MEDS ORDERED: ACET325T9 PO (01:01)
[2017-05-12] MEDS ORDERED: ATOR10TA60 PO (01:02)
[2017-05-12] MEDS ORDERED: calcium carb/vit d3 PO (01:06)
[2017-05-12] MEDS ORDERED: CETI10TA16 PO (01:07)
[2017-05-12] MEDS ORDERED: FAMO20TA5 PO (01:12)
[2017-05-12] MEDS ORDERED: FERR-26 PO (01:13)
[2017-05-12] MEDS ORDERED: MAGN2400 PO (01:15)
[2017-05-12] MEDS ORDERED: MAG30ORA PO (01:15)
[2017-05-12] MEDS ORDERED: MELA3TAB2 PO (01:16)
[2017-05-12] MEDS ORDERED: METH29OI TP (01:17)
[2017-05-12] MEDS ORDERED: MIRT15TA3 PO (01:18)
[2017-05-12] MEDS ORDERED: OLAN2.5T3 PO (01:20)
[2017-05-12] MEDS ORDERED: BUSP5TAB PO (01:21)
[2017-05-12 05:55] VITALS: BP 131/73
[2017-05-12] MEDS: DIVALPROEX 125 MG CAP.SPRINK PO SCH (08:18)
[2017-05-12] MEDS: FAMOTIDINE 20 MG TABLET PO SCH (08:18)
[2017-05-12] MEDS: MULTIVITAMIN with MINERAL TABLET. PO SCH (08:18)
[2017-05-12] MEDS: busPIRone 5 MG TABLET. PO SCH ×2 (08:18→12:47)
[2017-05-12] MEDS: CITALOPRAM 10 MG TABLET. PO SCH (08:18)
[2017-05-12] MEDS: FERROUS SULFATE 325 MG TABLET PO SCH (08:18)
[2017-05-12] MEDS: CALCIUM CARB/VIT D3 500/200 TABLET PO SCH (08:18)
[2017-05-12] MEDS: ASPIRIN ENTERIC COATED 81 MG TABLET.DR. PO SCH (08:18)
[2017-05-12 09:24] LABS: BILIRUBIN,URINE NEG (NEG); CLARITY,URINE TURBID; COLOR,URINE YELLOW; GLUCOSE,URINE NEG (NEG)
[2017-05-12 09:25] LABS: BACTERIA,URINE MANY /HPF (0-FEW); NITRITE,URINE NEG (NEG); SQUAMOUS EPITHELIAL CELL,UR FEW /LPF; UROBILINOGEN,URINE 0.2 mg/dL (0.2 mg/dL); WBC,URINE >40 /HPF (0-4)
== END 2017-05-12 14:30 | DRG 884 ==
LOC: ER 17:08 → GEROPSY 19:05
PROVIDERS: ADMIT Psychiatry & Neurology Psychiatry; ATTEND Psychiatry & Neurology Psychiatry
DX: F01.51 Vascular dementia, unspecified severity, with behavioral disturbance (principal); F02.81 Dementia in other diseases classified elsewhere, unspecified severity, with behavioral disturbance; G30.9 Alzheimer's disease, unspecified; E78.5 Hyperlipidemia, unspecified; F32.9 Major depressive disorder, single episode, unspecified; F41.9 Anxiety disorder, unspecified; F63.9 Impulse disorder, unspecified; J30.9 Allergic rhinitis, unspecified; E55.9 Vitamin D deficiency, unspecified; M19.90 Unspecified osteoarthritis, unspecified site; K21.9 Gastro-esophageal reflux disease without esophagitis; K57.90 Diverticulosis of intestine, part unspecified, without perforation or abscess without bleeding; M81.0 Age-related osteoporosis without current pathological fracture; Z66 Do not resuscitate; Z86.010 Personal history of colon polyps; Z91.81 History of falling; Z91.83 Wandering in diseases classified elsewhere
CPT/HCPCS: 36415; 80053; 80061; 80164; 81001; 82306; 82607; 83036; 83540; 83550; 83735; 84436; 84443; 84480; 85027; 86592; 86593; 87086; 93005; 99285-25